=== PATIENT | male | born 1945 | race Caucasian/White ===

== ENCOUNTER → 2017-01-09 | Outpatient (CLI) | payer MEDICARE ==
[~2017-01-09] MED LIST: ACET-1757 PO; ACET325T14 PO; ACET650T34 PO; ACID1TAB3 PO; ALLO100T30 PO; AMLO10TA2 PO; AMLO5TAB4 PO; AMPI500V3; ASPI-496; ASPI-496 PO; ATOR10TA9 PO; ATOR20TA PO; ATOR20TA9 PO; B12 PO; CARV-39 PO; CARV25TA12 PO; CEFD300C37 PO; CHOL100015 PO; CHOL500014 PO; CLOP75TA22 PO; CYAN100063 PO; DAPT500V6 IV; DARB100D SQ; DOCU-30 PO; DOCU60SY11; ERGO500017 PO; FAMO20TA7 PO; FEBU80TA2; FEBU80TA2 PO; FERR325T20 PO; FERR325T35 PO; FLUO20CA19 PO; FLUO20CA8 PO; FLUO20TA25 PO; FLUO40CA2 PO; FLUO40CA9; FLUO40CA9 PO; FOLI-17 PO; FOLI0.8T2 PO; FOLIC ACID PO; FURO-92 PO; FURO-93 PO; FURO40TA6 PO; FURO80TA77 PO; GABA100C8 PO; GABA300C PO; HEPA500024 SC; HYDR-3342 PO; INSU100V10 SQ-INSULIN; INSU100V14 SC; INSU100V3 SQ-INSULIN; INSU100V5 SQ-INSULIN; ISOS20TA3 PO; ISOS30TA19 PO; ISOS40TA11 PO; ISOS5TAB2 PO; ISOS60TA PO; LACT1CAP24 PO; LACT1CAP6 PO; LEVO500T33; LISI-170 PO; LOPE1TAB4 PO; LOPE2CAP PO; LOSA100T6 PO; LUBI24CA5 PO; METH500T7 PO; METH500T97 PO; METO2.5T PO; METR500T; METR500T PO; NIAC1000 PO; NITR0.4T SL; NITR0.4T8 SL; OMEG1CAP6 PO; OMEP-110 PO; OMEP20CA9 PO; ONDA4TAB10 PO; OXYC10TA32 PO; OXYC10TA6 PO; OXYC5TAB3 PO; OXYM30MI NAS; PANT40TA3 PO; PANT40TA5 PO; PIPE4.5V6 IV; POLY17PO5 PO; POLY454P3 PO; PRAS10TA4 PO; RANO500T2 PO; SENN8.6T98 PO; SEVE800T8 PO; SIMV10TA3 PO; SODI650T PO; SUCR1ORA2 PO; TAMS-11 PO; TAMS0.4C2 PO; TRAM-28 PO; TRAM50TA2 PO; VANC125C2 PO; ZOLP5TAB6 PO
[2017-01-09 10:09] LABS: ASPARTATE AMINO TRANSFERASE 16 U/L (15-37); BLOOD UREA NITROGEN 43 mg/dL (7-18)
[2017-01-09 10:45] LABS: DIFF TOTAL CELLS COUNTED 100 CELL DIFF
[2017-01-09 10:48] LABS: VERIFY COUNTS? YES
[2017-01-09 10:49] LABS: ANISOCYTOSIS 2+; HYPOCHROMIA 1+; POLYCHROMASIA 1+
[2017-01-09 10:50] LABS: OVALOCYTES 1+; TARGET CELLS 1+
== END | disposition home or self-care (01) ==
LOC: LAB 09:28
PROVIDERS: ATTEND Internal Medicine Hematology & Oncology
DX: D47.2 Monoclonal gammopathy (principal)
CPT/HCPCS: 36415; 80053; 82232; 82784; 83883; 84155; 84156; 84165; 84166; 85025; 86334; 86335

== ENCOUNTER 2017-01-24 15:09 | Inpatient (IN) | payer MEDICARE ==
[~2017-01-24] VITALS: Ht 177.8 cm; Wt 125.2 kg
[2017-01-24] MEDS ORDERED: ASPIRIN 81 MG TABLET CHEW PO ONE (15:30)
[2017-01-24] MEDS ORDERED: SODIUM CHLORIDE FLUSH 10ML SYR IVF ONE (15:30)
[2017-01-24] MEDS ORDERED: ASPIRIN 81 MG TABLET CHEW ONE (15:43)
[2017-01-24 15:45] LABS: BLOOD UREA NITROGEN 51 mg/dL (7-18)
[2017-01-24 15:51] LABS: ASPARTATE AMINO TRANSFERASE 29 U/L (15-37)
[2017-01-24 15:54] LABS: IS PT STATUS REG ER OR PRE ER? YES
[2017-01-24] MEDS ORDERED: SODIUM CHLORIDE 0.9%, 250ML IVBOLUS ONE ×2 (16:00→17:00)
[2017-01-24 16:08] LABS: DIFF TOTAL CELLS COUNTED 100 CELL DIFF
[2017-01-24 16:14] LABS: ANISOCYTOSIS 2+
[2017-01-24 16:15] LABS: MICROCYTOSIS 1+; OVALOCYTES 1+; POIKILOCYTOSIS 1+; POLYCHROMASIA 1+
[2017-01-24 16:16] LABS: VERIFY COUNTS? YES
[2017-01-24] MEDS ORDERED: ALBUTEROL/IPRATROPIUM 2.5MG/0.5MG, 3 ML ONE (16:40)
[2017-01-24] MEDS ORDERED: ALBUTEROL/IPRATROPIUM 2.5MG/0.5MG, 3 ML NPPB ONE (17:00)
[2017-01-24] MEDS ORDERED: CALCIUM GLUCONATE 0.46MEQ/1ML IVPush ONE (18:30)
[2017-01-24] MEDS ORDERED: GLUCAGON 1 MG IVPush ONE ×2 (18:30→20:00)
[2017-01-24] MEDS ORDERED: ONDANSETRON 2MG/ML, 2ML IVPush ONE (18:30)
[2017-01-24] MEDS ORDERED: CALCIUM GLUCONATE 4.6 MEQ in SODIUM CHLORIDE 0.9% 50 ML IV ONE (19:00)
[2017-01-24] MEDS ORDERED: ONDANSETRON 2MG/ML, 2ML ONE (19:13)
[2017-01-24] MEDS ORDERED: GLUCAGON 1 MG ONE (19:53)
[2017-01-24] MEDS ORDERED: NITROGLYCERIN 0.4 MG BOTTLE (25 TABS) SL PRN (20:00)
[2017-01-24] MEDS ORDERED: morphine SULFATE 10 MG/ML, 1ML IVPush PRN (20:30)
[2017-01-24] MEDS ORDERED: HYDROcodone/APAP 5/325 TABLET PO PRN (20:30)
[2017-01-24] MEDS ORDERED: ALBUTEROL SULFATE 2.5 MG/3 ML ONE (22:51)
[2017-01-24] MEDS: GABAPENTIN 300 MG CAPSULE PO SCH (23:22)
[2017-01-24] MEDS: HEPARIN 5,000 UNITS/ML, 1ML SQ SCH (23:22)
[2017-01-24] MEDS: OMEPRAZOLE 20 MG CAPSULE.DR PO SCH (23:22)
[2017-01-24] MEDS: INSULIN ASPART 100 UNITS/ML, PEN SQ-INSULIN SCH (23:22)
[2017-01-24] MEDS: ATORVASTATIN 20 MG TABLET PO SCH (23:22)
[2017-01-24] MEDS: SEVELAMER 800MG TABLET PO SCH (23:29)
[2017-01-25] MEDS ORDERED: ALBUTEROL/IPRATROPIUM 2.5MG/0.5MG, 3 ML NPPB PRN (01:00)
[2017-01-25 03:13] VITALS: BP 98/57
[2017-01-25 05:00] VITALS: BP 103/64
[2017-01-25] MEDS: HEPARIN 5,000 UNITS/ML, 1ML SQ SCH ×3 (06:09→21:30)
[2017-01-25 06:34] LABS: BLOOD UREA NITROGEN 58 mg/dL (7-18)
[2017-01-25] MEDS: INSULIN ASPART 100 UNITS/ML, PEN SQ-INSULIN SCH ×4 (07:00→21:30)
[2017-01-25] MEDS: ONDANSETRON 2MG/ML, 2ML IVPush PRN ×2 (08:52→20:24)
[2017-01-25] MEDS: FLUOXETINE 20 MG CAPSULE PO SCH (08:53)
[2017-01-25] MEDS: CLOPIDOGREL 75 MG TABLET PO SCH (08:53)
[2017-01-25] MEDS: OMEPRAZOLE 20 MG CAPSULE.DR PO SCH ×2 (08:53→21:29)
[2017-01-25] MEDS: ASPIRIN 81 MG TABLET EC PO SCH (08:53)
[2017-01-25] MEDS: SEVELAMER 800MG TABLET PO SCH (08:53)
[2017-01-25] MEDS: CARVEDILOL 3.125 MG TABLET PO SCH ×2 (09:00→21:29)
[2017-01-25 09:02] VITALS: BP 104/58
[2017-01-25] MEDS: CALCIUM ACETATE 667 MG CAPSULE PO SCH ×2 (12:37→21:29)
[2017-01-25 15:10] VITALS: BP 115/57
[2017-01-25] MEDS: CEFTRIAXONE 1,000 MG in SODIUM CHLORIDE 0.9% 50 ML IV SCH (20:24)
[2017-01-25 20:32] VITALS: BP 139/69
[2017-01-25] MEDS: ATORVASTATIN 20 MG TABLET PO SCH (21:29)
[2017-01-25] MEDS: GABAPENTIN 300 MG CAPSULE PO SCH (21:30)
[2017-01-25] MEDS ORDERED: ACETAMINOPHEN 325 MG TABLET PO PRN (22:30)
[2017-01-26 02:15] VITALS: BP 102/61
[2017-01-26] MEDS: CARVEDILOL 3.125 MG TABLET PO SCH ×2 (06:00→20:27)
[2017-01-26 06:11] LABS: BLOOD UREA NITROGEN 44 mg/dL (7-18)
[2017-01-26] MEDS: HEPARIN 5,000 UNITS/ML, 1ML SQ SCH ×3 (06:14→20:26)
[2017-01-26] MEDS: INSULIN ASPART 100 UNITS/ML, PEN SQ-INSULIN SCH ×4 (07:00→21:00)
[2017-01-26 08:23] VITALS: BP 115/57
[2017-01-26] MEDS: CLOPIDOGREL 75 MG TABLET PO SCH (09:00)
[2017-01-26] MEDS: FLUOXETINE 20 MG CAPSULE PO SCH (09:00)
[2017-01-26] MEDS: CALCIUM ACETATE 667 MG CAPSULE PO SCH ×3 (09:00→17:49)
[2017-01-26] MEDS: CYANOCOBALAMIN 1,000 MCG TABLET PO SCH (09:00)
[2017-01-26] MEDS: OMEPRAZOLE 20 MG CAPSULE.DR PO SCH ×2 (09:00→20:27)
[2017-01-26] MEDS: ASPIRIN 81 MG TABLET EC PO SCH (09:06)
[2017-01-26 14:31] VITALS: BP 115/62
[2017-01-26 19:13] VITALS: BP 143/75
[2017-01-26] MEDS: CEFTRIAXONE 1,000 MG in SODIUM CHLORIDE 0.9% 50 ML IV SCH (20:26)
[2017-01-26] MEDS: GABAPENTIN 300 MG CAPSULE PO SCH (20:26)
[2017-01-26] MEDS: ATORVASTATIN 20 MG TABLET PO SCH (20:27)
[2017-01-26] MEDS: ALBUTEROL/IPRATROPIUM 2.5MG/0.5MG, 3 ML NPPB SCH (21:03)
[2017-01-26] MEDS: ARANESP 100 MCG/ML **ESRD SQ SCH (21:50)
[2017-01-27 00:56] VITALS: BP 140/72
[2017-01-27] MEDS: HEPARIN 5,000 UNITS/ML, 1ML SQ SCH ×3 (06:16→23:01)
[2017-01-27] MEDS: CARVEDILOL 3.125 MG TABLET PO SCH ×2 (06:16→17:20)
[2017-01-27] MEDS: INSULIN ASPART 100 UNITS/ML, PEN SQ-INSULIN SCH ×4 (07:00→20:03)
[2017-01-27] MEDS: ALBUTEROL/IPRATROPIUM 2.5MG/0.5MG, 3 ML NPPB SCH ×2 (07:01→21:20)
[2017-01-27 08:22] VITALS: BP 130/66
[2017-01-27] MEDS: OMEPRAZOLE 20 MG CAPSULE.DR PO SCH ×2 (09:15→20:04)
[2017-01-27] MEDS: CLOPIDOGREL 75 MG TABLET PO SCH (09:15)
[2017-01-27] MEDS: FLUOXETINE 20 MG CAPSULE PO SCH (09:15)
[2017-01-27] MEDS: CALCIUM ACETATE 667 MG CAPSULE PO SCH ×3 (09:15→17:20)
[2017-01-27] MEDS: ASPIRIN 81 MG TABLET EC PO SCH (09:16)
[2017-01-27] MEDS: FERROUS SULFATE 325 MG TABLET PO SCH ×3 (09:27→17:20)
[2017-01-27 10:27] LABS: HEP B SURF. AB < 3.1 mIU/mL (0.0-10.0)
[2017-01-27 15:25] VITALS: BP 118/66
[2017-01-27 19:53] VITALS: BP 108/62
[2017-01-27] MEDS: GABAPENTIN 300 MG CAPSULE PO SCH (20:04)
[2017-01-27] MEDS: ATORVASTATIN 20 MG TABLET PO SCH (20:04)
[2017-01-27] MEDS: CEFTRIAXONE 1,000 MG in SODIUM CHLORIDE 0.9% 50 ML IV SCH (20:04)
[2017-01-28 02:27] VITALS: BP 108/63
[2017-01-28] MEDS: INSULIN ASPART 100 UNITS/ML, PEN SQ-INSULIN SCH ×4 (07:00→20:35)
[2017-01-28 07:40] VITALS: BP 124/67
[2017-01-28] MEDS: ALBUTEROL/IPRATROPIUM 2.5MG/0.5MG, 3 ML NPPB SCH ×2 (07:50→19:25)
[2017-01-28] MEDS: HEPARIN 5,000 UNITS/ML, 1ML SQ SCH ×2 (09:09→17:28)
[2017-01-28] MEDS: CARVEDILOL 3.125 MG TABLET PO SCH ×2 (09:12→17:28)
[2017-01-28] MEDS: ASPIRIN 81 MG TABLET EC PO SCH (09:14)
[2017-01-28] MEDS: CALCIUM ACETATE 667 MG CAPSULE PO SCH ×3 (09:14→17:28)
[2017-01-28] MEDS: CLOPIDOGREL 75 MG TABLET PO SCH (09:14)
[2017-01-28] MEDS: FERROUS SULFATE 325 MG TABLET PO SCH ×3 (09:15→17:28)
[2017-01-28] MEDS: FLUOXETINE 20 MG CAPSULE PO SCH (09:15)
[2017-01-28] MEDS: OMEPRAZOLE 20 MG CAPSULE.DR PO SCH ×2 (09:16→20:35)
[2017-01-28 14:00] VITALS: BP 129/72
[2017-01-28 17:25] VITALS: BP 121/64
[2017-01-28] MEDS ORDERED: VANCOMYCIN PER PHARMACY MC PRN (17:30)
[2017-01-28] MEDS ORDERED: PHARMACY INSTRUCTION MC SCH (17:30)
[2017-01-28] MEDS ORDERED: VANCOMYCIN PMX 1GM/200ML 200 ML IV ONE (17:30)
[2017-01-28] MEDS ORDERED: VANCOMYCIN 2,000 MG in SODIUM CHLORIDE 0.9% 500 ML IV ONE (18:00)
[2017-01-28] MEDS ORDERED: PHARMACOKINETIC CONSULTATION MC ONE (18:00)
[2017-01-28] MEDS ORDERED: PIPERACILLIN/TAZO 0.75 GM in SODIUM CHLORIDE 0.9% 50 ML IV PRN (18:00)
[2017-01-28] MEDS ORDERED: PHARMACOKINETIC MONITORING MC PRN (18:00)
[2017-01-28] MEDS: PIPERACILLIN/TAZO 2.25 GM in SODIUM CHLORIDE 0.9% 50 ML IV SCH (18:06)
[2017-01-28 19:40] VITALS: BP 126/66
[2017-01-28] MEDS: ATORVASTATIN 20 MG TABLET PO SCH (20:35)
[2017-01-28] MEDS: GABAPENTIN 300 MG CAPSULE PO SCH (20:35)
[2017-01-29] MEDS: PIPERACILLIN/TAZO 2.25 GM in SODIUM CHLORIDE 0.9% 50 ML IV SCH ×3 (01:24→18:05)
[2017-01-29] MEDS: HEPARIN 5,000 UNITS/ML, 1ML SQ SCH ×3 (01:24→18:06)
[2017-01-29] MEDS ORDERED: IRON SUCROSE COMPLEX 100MG/5ML IV SCH (01:30)
[2017-01-29 01:48] VITALS: BP 113/64
[2017-01-29] MEDS: IRON SUCROSE COMPLEX 100MG/5ML IV SCH (03:38)
[2017-01-29] MEDS: CARVEDILOL 3.125 MG TABLET PO SCH ×2 (05:22→18:06)
[2017-01-29 05:37] LABS: BLOOD UREA NITROGEN 90 mg/dL (7-18)
[2017-01-29] MEDS: INSULIN ASPART 100 UNITS/ML, PEN SQ-INSULIN SCH ×4 (07:00→20:59)
[2017-01-29] MEDS: ALBUTEROL/IPRATROPIUM 2.5MG/0.5MG, 3 ML NPPB SCH ×2 (07:10→19:21)
[2017-01-29 07:46] VITALS: BP 114/64
[2017-01-29] MEDS: FLUOXETINE 20 MG CAPSULE PO SCH (09:17)
[2017-01-29] MEDS: CLOPIDOGREL 75 MG TABLET PO SCH (09:17)
[2017-01-29] MEDS: OMEPRAZOLE 20 MG CAPSULE.DR PO SCH ×2 (09:17→20:59)
[2017-01-29] MEDS: CALCIUM ACETATE 667 MG CAPSULE PO SCH ×3 (09:17→18:04)
[2017-01-29] MEDS: ASPIRIN 81 MG TABLET EC PO SCH (09:17)
[2017-01-29 14:00] VITALS: BP 126/56
[2017-01-29 14:16] LABS: BLOOD UREA NITROGEN 76 mg/dL (7-18)
[2017-01-29] MEDS: metroNIDAZOLE 500 MG TABLET PO SCH (16:00)
[2017-01-29 18:04] VITALS: BP 126/70
[2017-01-29] MEDS: ATORVASTATIN 20 MG TABLET PO SCH (20:59)
[2017-01-29] MEDS: GABAPENTIN 300 MG CAPSULE PO SCH (20:59)
[2017-01-29 21:00] VITALS: BP 119/64
[2017-01-30] MEDS: IRON SUCROSE COMPLEX 100MG/5ML IV SCH (01:10)
[2017-01-30] MEDS: metroNIDAZOLE 500 MG TABLET PO SCH ×3 (01:10→16:17)
[2017-01-30] MEDS: PIPERACILLIN/TAZO 2.25 GM in SODIUM CHLORIDE 0.9% 50 ML IV SCH ×3 (01:10→18:33)
[2017-01-30] MEDS: HEPARIN 5,000 UNITS/ML, 1ML SQ SCH ×3 (01:10→16:17)
[2017-01-30 01:34] VITALS: BP 104/62
[2017-01-30] MEDS: CARVEDILOL 3.125 MG TABLET PO SCH ×2 (05:33→16:17)
[2017-01-30 05:58] LABS: ASPARTATE AMINO TRANSFERASE 39 U/L (15-37); BLOOD UREA NITROGEN 55 mg/dL (7-18)
[2017-01-30] MEDS: INSULIN ASPART 100 UNITS/ML, PEN SQ-INSULIN SCH ×4 (07:00→21:00)
[2017-01-30] MEDS: CLOPIDOGREL 75 MG TABLET PO SCH ×2 (07:30→11:26)
[2017-01-30] MEDS: ASPIRIN 81 MG TABLET EC PO SCH ×2 (07:30→11:26)
[2017-01-30 07:47] VITALS: BP 118/63
[2017-01-30] MEDS: ALBUTEROL/IPRATROPIUM 2.5MG/0.5MG, 3 ML NPPB SCH ×2 (07:50→21:25)
[2017-01-30] MEDS: OMEPRAZOLE 20 MG CAPSULE.DR PO SCH ×2 (07:52→21:23)
[2017-01-30] MEDS: FLUOXETINE 20 MG CAPSULE PO SCH (07:53)
[2017-01-30] MEDS: CALCIUM ACETATE 667 MG CAPSULE PO SCH ×3 (07:53→16:17)
[2017-01-30 15:00] VITALS: BP 121/67
[2017-01-30 21:11] VITALS: BP 118/63
[2017-01-30] MEDS: GABAPENTIN 300 MG CAPSULE PO SCH (21:23)
[2017-01-30] MEDS: ATORVASTATIN 20 MG TABLET PO SCH (21:23)
[2017-01-31] VITALS (13 sets, daily range): BP systolic 116–143; BP diastolic 59–74
[2017-01-31] MEDS: PIPERACILLIN/TAZO 2.25 GM in SODIUM CHLORIDE 0.9% 100 ML IV SCH ×3 (00:40→17:30)
[2017-01-31] MEDS: metroNIDAZOLE 500 MG TABLET PO SCH ×2 (00:40→09:00)
[2017-01-31] MEDS: IRON SUCROSE COMPLEX 100MG/5ML IV SCH (00:41)
[2017-01-31] MEDS: HEPARIN 5,000 UNITS/ML, 1ML SQ SCH (01:00)
[2017-01-31 02:30] LABS: OCCBLD OBC PASS
[2017-01-31] MEDS ORDERED: PANTOPRAZOLE 40 MG IV IVPush ONE (04:00)
[2017-01-31 06:09] LABS: DIFF TOTAL CELLS COUNTED 100 CELL DIFF
[2017-01-31 06:11] LABS: ANISOCYTOSIS 1+; VERIFY COUNTS? YES
[2017-01-31 06:12] LABS: HYPOCHROMIA 1+; OVALOCYTES 1+; POIKILOCYTOSIS 1+
[2017-01-31 06:13] LABS: BLOOD UREA NITROGEN 69 mg/dL (7-18)
[2017-01-31 06:13] LABS: LARGE PLATELETS 1+; MICROCYTOSIS 1+
[2017-01-31] MEDS: ALBUTEROL/IPRATROPIUM 2.5MG/0.5MG, 3 ML NPPB SCH ×2 (06:50→21:21)
[2017-01-31] MEDS: INSULIN ASPART 100 UNITS/ML, PEN SQ-INSULIN SCH ×4 (07:00→21:00)
[2017-01-31] MEDS ORDERED: SODIUM CHLORIDE 0.9% 500 ML IV SCH (07:17)
[2017-01-31] MEDS ORDERED: DIPHENHYDRAMINE 50 MG/ML, 1ML IVPush ONE (07:30)
[2017-01-31] MEDS ORDERED: VANCOMYCIN 50 MG/ML ORAL SUSP PO SCH (07:30)
[2017-01-31] MEDS ORDERED: ACETAMINOPHEN 325 MG TABLET PO ONE (07:30)
[2017-01-31] MEDS: CARVEDILOL 3.125 MG TABLET PO SCH ×2 (09:00→17:47)
[2017-01-31] MEDS: ASPIRIN 81 MG TABLET EC PO SCH (09:00)
[2017-01-31] MEDS: CALCIUM ACETATE 667 MG CAPSULE PO SCH ×3 (09:00→17:44)
[2017-01-31] MEDS: CLOPIDOGREL 75 MG TABLET PO SCH (09:01)
[2017-01-31] MEDS: OMEPRAZOLE 20 MG CAPSULE.DR PO SCH ×2 (09:01→21:51)
[2017-01-31] MEDS: FLUOXETINE 20 MG CAPSULE PO SCH (09:01)
[2017-01-31 10:12] LABS: OCCBLD OBC PASS
[2017-01-31] MEDS: VANCOMYCIN 50 MG/ML ORAL SUSP PO SCH ×2 (14:00→21:51)
[2017-01-31 17:16] LABS: IS PT STATUS REG ER OR PRE ER? NO
[2017-01-31] MEDS ORDERED: DIPHENHYDRAMINE 50 MG/ML, 1ML ONE (17:39)
[2017-01-31] MEDS ORDERED: VANCOMYCIN 2,000 MG in SODIUM CHLORIDE 0.9% 500 ML IV ONE (18:00)
[2017-01-31] MEDS ORDERED: ALBUMIN HUMAN 25% 50 ML IV PRN (18:00)
[2017-01-31] MEDS ORDERED: ALBUMIN HUMAN 25% 100 ML IV PRN (18:00)
[2017-01-31] MEDS: ATORVASTATIN 20 MG TABLET PO SCH (21:51)
[2017-01-31] MEDS: GABAPENTIN 300 MG CAPSULE PO SCH (21:51)
[2017-02-01 01:30] VITALS: BP 123/70
[2017-02-01] MEDS: PIPERACILLIN/TAZO/PMX 2.25GM 50 ML IV SCH ×3 (01:32→17:27)
[2017-02-01] MEDS: IRON SUCROSE COMPLEX 100MG/5ML IV SCH (01:32)
[2017-02-01] MEDS: CARVEDILOL 3.125 MG TABLET PO SCH ×2 (05:04→17:27)
[2017-02-01] MEDS: VANCOMYCIN 50 MG/ML ORAL SUSP PO SCH ×4 (05:05→22:47)
[2017-02-01 06:11] LABS: BLOOD UREA NITROGEN 36 mg/dL (7-18)
[2017-02-01 06:47] LABS: DIFF TOTAL CELLS COUNTED 100 CELL DIFF
[2017-02-01 06:49] LABS: VERIFY COUNTS? YES
[2017-02-01 06:50] LABS: HYPOCHROMIA 1+; POLYCHROMASIA 1+
[2017-02-01 06:52] LABS: OVALOCYTES 1+
[2017-02-01 06:57] LABS: ANISOCYTOSIS 2+; LARGE PLATELETS 1+
[2017-02-01] MEDS: INSULIN ASPART 100 UNITS/ML, PEN SQ-INSULIN SCH ×4 (07:00→21:00)
[2017-02-01 07:38] VITALS: BP 134/69
[2017-02-01] MEDS: FLUOXETINE 20 MG CAPSULE PO SCH (08:38)
[2017-02-01] MEDS: CLOPIDOGREL 75 MG TABLET PO SCH (08:38)
[2017-02-01] MEDS: OMEPRAZOLE 20 MG CAPSULE.DR PO SCH ×2 (08:38→22:47)
[2017-02-01] MEDS: CALCIUM ACETATE 667 MG CAPSULE PO SCH ×3 (08:38→17:27)
[2017-02-01] MEDS: PANTOPRAZOLE 40 MG IV IVPush SCH (08:44)
[2017-02-01] MEDS: ALBUTEROL/IPRATROPIUM 2.5MG/0.5MG, 3 ML NPPB SCH ×2 (09:45→21:00)
[2017-02-01] MEDS: PANTOPRAZOLE MC SCH ×2 (12:00→20:00)
[2017-02-01] MEDS: OMEPRAZOLE MC SCH ×2 (12:00→20:00)
[2017-02-01 14:06] VITALS: BP 142/67
[2017-02-01] MEDS ORDERED: GOLYTELY 4,000ML ORAL.SOL PO ONE (18:00)
[2017-02-01 19:08] VITALS: BP 138/75
[2017-02-01] MEDS: ATORVASTATIN 20 MG TABLET PO SCH (22:47)
[2017-02-01] MEDS: GABAPENTIN 300 MG CAPSULE PO SCH (22:47)
[2017-02-02 01:16] VITALS: BP 126/68
[2017-02-02] MEDS: PIPERACILLIN/TAZO/PMX 2.25GM 50 ML IV SCH ×3 (01:55→22:11)
[2017-02-02] MEDS: IRON SUCROSE COMPLEX 100MG/5ML IV SCH (01:55)
[2017-02-02] MEDS: PANTOPRAZOLE MC SCH (04:00)
[2017-02-02] MEDS: OMEPRAZOLE MC SCH (04:00)
[2017-02-02 05:40] VITALS: BP 153/70
[2017-02-02] MEDS: VANCOMYCIN 50 MG/ML ORAL SUSP PO SCH ×4 (05:42→22:11)
[2017-02-02] MEDS: CARVEDILOL 3.125 MG TABLET PO SCH ×2 (05:43→22:15)
[2017-02-02 05:46] LABS: BLOOD UREA NITROGEN 41 mg/dL (7-18)
[2017-02-02 06:20] LABS: DIFF TOTAL CELLS COUNTED 100 CELL DIFF
[2017-02-02 06:22] LABS: ANISOCYTOSIS 2+; POLYCHROMASIA 1+; VERIFY COUNTS? YES
[2017-02-02 06:23] LABS: LARGE PLATELETS 1+; OVALOCYTES 1+
[2017-02-02 06:25] LABS: HOWELL-JOLLY BODIES 1+; MICROCYTOSIS 1+
[2017-02-02 06:27] LABS: SPHEROCYTES 1+
[2017-02-02 06:29] LABS: ECHINOCYTES 1+
[2017-02-02] MEDS: INSULIN ASPART 100 UNITS/ML, PEN SQ-INSULIN SCH ×2 (07:00→11:00)
[2017-02-02 07:37] VITALS: BP 157/92
[2017-02-02] MEDS ORDERED: MIDAZOLAM 1 MG/ML, 2ML ONE (08:10)
[2017-02-02] MEDS ORDERED: FENTANYL PF 100 MCG/2ML ONE (08:10)
[2017-02-02] MEDS: PANTOPRAZOLE 40 MG IV IVPush SCH (08:15)
[2017-02-02] MEDS: ALBUTEROL/IPRATROPIUM 2.5MG/0.5MG, 3 ML NPPB SCH ×2 (09:00→20:50)
[2017-02-02] MEDS: OMEPRAZOLE 20 MG CAPSULE.DR PO SCH (09:00)
[2017-02-02] MEDS: FLUOXETINE 20 MG CAPSULE PO SCH (10:32)
[2017-02-02] MEDS: CYANOCOBALAMIN 1,000 MCG TABLET PO SCH (10:33)
[2017-02-02] MEDS: CALCIUM ACETATE 667 MG CAPSULE PO SCH ×3 (10:33→17:00)
[2017-02-02] MEDS: CLOPIDOGREL 75 MG TABLET PO SCH (10:33)
[2017-02-02 13:27] VITALS: BP 125/68
[2017-02-02 19:26] VITALS: BP 132/58
[2017-02-02] MEDS: ATORVASTATIN 20 MG TABLET PO SCH (22:11)
[2017-02-02] MEDS: GABAPENTIN 300 MG CAPSULE PO SCH (22:11)
[2017-02-02 22:13] VITALS: BP 145/73
[2017-02-03] MEDS: ARANESP 100 MCG/ML **ESRD SQ SCH
[2017-02-03 03:01] VITALS: BP 146/68
[2017-02-03 06:15] LABS: BLOOD UREA NITROGEN 21 mg/dL (7-18)
[2017-02-03 06:21] LABS: DIFF TOTAL CELLS COUNTED 100 CELL DIFF
[2017-02-03 06:25] LABS: VERIFY COUNTS? YES
[2017-02-03 06:26] LABS: ANISOCYTOSIS 2+; HYPOCHROMIA 1+; MICROCYTOSIS 1+
[2017-02-03] MEDS: PIPERACILLIN/TAZO/PMX 2.25GM 50 ML IV SCH ×2 (06:42→17:03)
[2017-02-03] MEDS: VANCOMYCIN 50 MG/ML ORAL SUSP PO SCH ×3 (06:42→17:03)
[2017-02-03 06:44] VITALS: BP 132/62
[2017-02-03] MEDS: CARVEDILOL 3.125 MG TABLET PO SCH ×2 (06:46→17:03)
[2017-02-03] MEDS ORDERED: VANCOMYCIN 2,000 MG in SODIUM CHLORIDE 0.9% 500 ML IV ONE (08:00)
[2017-02-03] MEDS: FLUOXETINE 20 MG CAPSULE PO SCH (09:13)
[2017-02-03] MEDS: PANTOPRAZOLE 40 MG IV IVPush SCH (09:13)
[2017-02-03] MEDS: CLOPIDOGREL 75 MG TABLET PO SCH (09:13)
[2017-02-03] MEDS: CALCIUM ACETATE 667 MG CAPSULE PO SCH ×3 (09:13→17:03)
[2017-02-03] MEDS: ALBUTEROL/IPRATROPIUM 2.5MG/0.5MG, 3 ML NPPB SCH ×2 (10:45→15:50)
[2017-02-03 14:06] VITALS: BP 129/70
[2017-02-03 19:26] VITALS: BP 153/62
[2017-02-03] MEDS: GABAPENTIN 300 MG CAPSULE PO SCH (21:03)
[2017-02-03] MEDS: ATORVASTATIN 20 MG TABLET PO SCH (21:03)
[2017-02-04] VITALS (14 sets, daily range): BP systolic 135–182; BP diastolic 55–80
[2017-02-04] MEDS: PIPERACILLIN/TAZO/PMX 2.25GM 50 ML IV SCH ×2 (01:16→09:19)
[2017-02-04] MEDS ORDERED: PHENYLEPHRINE NASAL 0.5%, 15ML SPRAY NAS ONE (05:00)
[2017-02-04 05:50] LABS: BLOOD UREA NITROGEN 28 mg/dL (7-18)
[2017-02-04] MEDS: VANCOMYCIN 50 MG/ML ORAL SUSP PO SCH ×3 (06:02→12:21)
[2017-02-04] MEDS: CARVEDILOL 3.125 MG TABLET PO SCH (06:02)
[2017-02-04 06:31] LABS: DIFF TOTAL CELLS COUNTED 100 CELL DIFF
[2017-02-04 06:39] LABS: ANISOCYTOSIS 2+; HYPOCHROMIA 1+; MICROCYTOSIS 1+; POLYCHROMASIA 1+; VERIFY COUNTS? YES
[2017-02-04 06:40] LABS: OVALOCYTES 1+
[2017-02-04 06:41] LABS: LARGE PLATELETS 1+
[2017-02-04] MEDS: FLUOXETINE 20 MG CAPSULE PO SCH (09:18)
[2017-02-04] MEDS: CALCIUM ACETATE 667 MG CAPSULE PO SCH ×2 (09:18→12:20)
[2017-02-04] MEDS: CLOPIDOGREL 75 MG TABLET PO SCH (09:18)
[2017-02-04] MEDS: PANTOPRAZOLE 40 MG IV IVPush SCH (09:18)
[2017-02-04] MEDS ORDERED: CALC667C PO (09:59)
[2017-02-04] MEDS ORDERED: IPRA3AMP NPPB (09:59)
[2017-02-04] MEDS ORDERED: CARV3.1212 PO (09:59)
[2017-02-04] MEDS ORDERED: DARB100V SQ (09:59)
[2017-02-04] MEDS ORDERED: VANC1VIA3 PO (09:59)
[2017-02-04] MEDS ORDERED: HYDR-3240 PO (09:59)
[2017-02-04] MEDS ORDERED: VANC1.5P11 IV (09:59)
[2017-02-04] MEDS ORDERED: PIPE2.253 IV (09:59)
[2017-02-04] MEDS ORDERED: FURO80TA77 PO (10:46)
[2017-02-04] MEDS ORDERED: ONDA4TAB13 IVPush (15:26)
[2017-02-04] MEDS ORDERED: MORP1SYR2 IVPush (15:28)
[2017-02-04] MEDS ORDERED: ACET650S21 PO (15:29)
[2017-02-04] MEDS ORDERED: ONDANSETRON 2MG/ML, 2ML IVPush PRN (16:00)
[2017-02-04] MEDS ORDERED: morphine SULFATE 10 MG/ML, 1ML IVPush PRN (16:00)
[2017-02-04] MEDS ORDERED: HYDROcodone/APAP 5/325 TABLET PO PRN (16:00)
[2017-02-05] MEDS ORDERED: PANTOPROZOLE 40MG TABLET PO SCH (07:30)
== END 2017-02-04 17:20 | DRG 871 ==
LOC: ED 19:20 → EDIP 19:28 → ED 19:42 → 5SO 22:14
PROVIDERS: ADMIT Internal Medicine; ATTEND Internal Medicine
PROC: 0T9B70Z Drainage of Bladder with Drainage Device, Via Natural or Artificial Opening (ICD-10-PCS; 2017-01-24)
PROC: 5A1D60Z (ICD-10-PCS; principal; 2017-01-25)
PROC: 30233N1 Transfusion of Nonautologous Red Blood Cells into Peripheral Vein, Percutaneous Approach (ICD-10-PCS; 2017-01-31)
PROC: 0W3P8ZZ Control Bleeding in Gastrointestinal Tract, Via Natural or Artificial Opening Endoscopic (ICD-10-PCS; 2017-02-03)
DX: A41.02 Sepsis due to Methicillin resistant Staphylococcus aureus (principal); J96.01 Acute respiratory failure with hypoxia; N18.6 End stage renal disease; E43 Unspecified severe protein-calorie malnutrition; J15.212 Pneumonia due to Methicillin resistant Staphylococcus aureus; K31.811 Angiodysplasia of stomach and duodenum with bleeding; E87.1 Hypo-osmolality and hyponatremia; I13.2 Hypertensive heart and chronic kidney disease with heart failure and with stage 5 chronic kidney disease, or end stage renal disease; I50.42 Chronic combined systolic (congestive) and diastolic (congestive) heart failure; N39.0 Urinary tract infection, site not specified; A04.7 Enterocolitis due to Clostridium difficile; J98.11 Atelectasis; D50.9 Iron deficiency anemia, unspecified; D63.1 Anemia in chronic kidney disease; E11.21 Type 2 diabetes mellitus with diabetic nephropathy; E11.22 Type 2 diabetes mellitus with diabetic chronic kidney disease; E11.40 Type 2 diabetes mellitus with diabetic neuropathy, unspecified; E78.5 Hyperlipidemia, unspecified; E83.51 Hypocalcemia; I25.10 Atherosclerotic heart disease of native coronary artery without angina pectoris; I48.0 Paroxysmal atrial fibrillation; K21.0 Gastro-esophageal reflux disease with esophagitis; K31.9 Disease of stomach and duodenum, unspecified; K74.69 Other cirrhosis of liver; M81.0 Age-related osteoporosis without current pathological fracture; N40.0 Benign prostatic hyperplasia without lower urinary tract symptoms; M54.9 Dorsalgia, unspecified; G89.29 Other chronic pain; R04.0 Epistaxis; Z82.49 Family history of ischemic heart disease and other diseases of the circulatory system; I25.2 Old myocardial infarction; Z83.3 Family history of diabetes mellitus; Z80.9 Family history of malignant neoplasm, unspecified; Z86.14 Personal history of Methicillin resistant Staphylococcus aureus infection; Z86.19 Personal history of other infectious and parasitic diseases; Z86.73 Personal history of transient ischemic attack (TIA), and cerebral infarction without residual deficits; Z87.891 Personal history of nicotine dependence; Z90.81 Acquired absence of spleen; Z95.5 Presence of coronary angioplasty implant and graft; Z99.2 Dependence on renal dialysis; Z99.81 Dependence on supplemental oxygen; Z90.49 Acquired absence of other specified parts of digestive tract; Z90.89 Acquired absence of other organs; Z68.39 Body mass index [BMI] 39.0-39.9, adult
CPT/HCPCS: 36415; 71010; 80048; 80053; 80069; 80202; 81001; 82272; 82306; 82330; 82565; 82728; 82962; 83036; 83540; 83550; 83690; 83880; 83970; 84100; 84484; 84520; 84550; 85014; 85018; 85025; 85610; 86705; 86706; 86850; 86900; 86923; 87040; 87070; 87077; 87086; 87147; 87186; 87205; 87324; 87340; 93005; 94640; 96365; J0610; J0696; J0882; J1644; J1756; J1815; J2250; J2405; J2543; J3010; J3370; J7620; P9047; C9113; J1200; J1610; J7040; J7050; P9016

== ENCOUNTER 2017-02-23 12:03 | Inpatient (IN) | payer MEDICARE ==
[~2017-02-23] VITALS: Ht 177.8 cm; Wt 121.8 kg
[~2017-02-23 12:03] MED LIST changes: +ACET-1770 PO; +ACET650S21 PO; -ACET650T34 PO; +CALC667C PO; +CARV3.1212 PO; +DARB100V SQ; +GABA-826 PO; -GABA100C8 PO; +HYDR-3240 PO; +IPRA3AMP NPPB; +MORP1SYR2 IVPush; +ONDA4TAB13 IVPush; +PIPE2.253 IV; +VANC1.5P11 IV; +VANC1VIA3 PO
[2017-02-23] MEDS ORDERED: ONDANSETRON 2MG/ML, 2ML IVPush ONE (12:30)
[2017-02-23] MEDS ORDERED: SODIUM CHLORIDE FLUSH 10ML SYR IVF ONE (12:30)
[2017-02-23] MEDS ORDERED: METF500T4 PO (12:35)
[2017-02-23] MEDS ORDERED: MORPHINE SULFATE 4 MG/ML, 1ML ONE (12:58)
[2017-02-23] MEDS ORDERED: ONDANSETRON 2MG/ML, 2ML ONE (12:59)
[2017-02-23] MEDS: MORPHINE SULFATE 4 MG/ML, 1ML IVPush PRN ×2 (13:01→14:25)
[2017-02-23 13:21] LABS: BLOOD UREA NITROGEN 11 mg/dL (7-18)
[2017-02-23 13:35] LABS: ANISOCYTOSIS 1+; HYPOCHROMIA 1+; OVALOCYTES 1+; POLYCHROMASIA 1+
[2017-02-23 13:37] LABS: HOWELL-JOLLY BODIES 1+
[2017-02-23 13:38] LABS: LARGE PLATELETS 1+
[2017-02-23] MEDS ORDERED: SODIUM CHLORIDE FLUSH 10ML SYR IVF PRN (17:00)
[2017-02-23] MEDS ORDERED: morphine SULFATE 10 MG/ML, 1ML IVPush PRN (19:00)
[2017-02-23] MEDS ORDERED: hydrALAzine 20 MG/ML, 1ML IVPush PRN (19:00)
[2017-02-23] MEDS ORDERED: POLYETHYLENE GLYCOL 17 GM PACKET PO PRN (19:00)
[2017-02-23] MEDS ORDERED: OXYcodone IR 5MG TABLET PO PRN (19:00)
[2017-02-23] MEDS ORDERED: ONDANSETRON 2MG/ML, 2ML IVPush PRN (19:00)
[2017-02-23] MEDS ORDERED: BISACODYL 10 MG SUPP PR PRN (19:00)
[2017-02-23] MEDS ORDERED: ACETAMINOPHEN 650 MG/20.3 ML UDC PO PRN (19:30)
[2017-02-23] MEDS ORDERED: NITROGLYCERIN 0.4 MG BOTTLE (25 TABS) SL PRN (19:30)
[2017-02-23] MEDS: SEVELAMER 800MG TABLET PO SCH (19:40)
[2017-02-23 20:00] VITALS: BP 106/63
[2017-02-23] MEDS: CEFTAROLINE 200 MG in SODIUM CHLORIDE 0.9% 100 ML IV SCH (20:03)
[2017-02-23] MEDS: CYANOCOBALAMIN 1,000 MCG TABLET PO SCH (20:03)
[2017-02-23] MEDS: OMEPRAZOLE 20 MG CAPSULE.DR PO SCH (20:03)
[2017-02-23] MEDS: ATORVASTATIN 20 MG TABLET PO SCH (20:03)
[2017-02-23] MEDS: HEPARIN 5,000 UNITS/ML, 1ML SQ SCH (20:03)
[2017-02-23] MEDS: ONDANSETRON ODT 4 MG PO SCH (20:04)
[2017-02-23] MEDS: DARBEPOETIN 100 MCG/ML SQ SCH (20:05)
[2017-02-23] MEDS: INSULIN ASPART 100 UNITS/ML, PEN SQ-INSULIN SCH (21:00)
[2017-02-23] MEDS: HYDROcodone/APAP 5/325 TABLET PO PRN (23:25)
[2017-02-24] MEDS: ONDANSETRON ODT 4 MG PO SCH ×4 (01:30→19:30)
[2017-02-24 02:32] VITALS: BP_SYST 85; BP_SYST 87; BP_DIAS 45; BP_DIAS 48
[2017-02-24] MEDS: HEPARIN 5,000 UNITS/ML, 1ML SQ SCH ×3 (03:10→20:26)
[2017-02-24] MEDS: ALBUTEROL/IPRATROPIUM 2.5MG/0.5MG, 3 ML NPPB SCH ×3 (03:50→19:01)
[2017-02-24 05:53] LABS: BLOOD UREA NITROGEN 19 mg/dL (7-18)
[2017-02-24 05:57] LABS: ASPARTATE AMINO TRANSFERASE 23 U/L (15-37)
[2017-02-24] MEDS ORDERED: CARVEDILOL 3.125 MG TABLET PO SCH (06:00)
[2017-02-24] MEDS: INSULIN ASPART 100 UNITS/ML, PEN SQ-INSULIN SCH ×4 (07:20→20:26)
[2017-02-24] MEDS: CEFTAROLINE 200 MG in SODIUM CHLORIDE 0.9% 100 ML IV SCH ×2 (07:53→20:26)
[2017-02-24] MEDS: GABAPENTIN 100 MG CAPSULE PO SCH ×3 (07:53→17:52)
[2017-02-24] MEDS: CALCIUM ACETATE 667 MG CAPSULE PO SCH ×3 (07:54→17:22)
[2017-02-24] MEDS ORDERED: ISOSORBIDE MONONITRATE 20 MG TABLET PO SCH (09:00)
[2017-02-24] MEDS ORDERED: SENNA/DOCUSATE TABLET PO SCH (09:00)
[2017-02-24] MEDS: OMEPRAZOLE 20 MG CAPSULE.DR PO SCH ×2 (09:09→20:26)
[2017-02-24] MEDS: CLOPIDOGREL 75 MG TABLET PO SCH (09:09)
[2017-02-24] MEDS: FUROSEMIDE 80 MG TABLET PO SCH (09:10)
[2017-02-24] MEDS: FLUOXETINE 20 MG CAPSULE PO SCH (09:10)
[2017-02-24] MEDS: SEVELAMER 800MG TABLET PO SCH ×3 (09:11→20:26)
[2017-02-24 09:15] VITALS: BP 108/60
[2017-02-24 13:08] VITALS: BP 99/53
[2017-02-24] MEDS: metroNIDAZOLE 500 MG TABLET PO SCH ×2 (15:08→22:51)
[2017-02-24] MEDS: CARVEDILOL 3.125 MG TABLET PO SCH (17:22)
[2017-02-24 20:02] VITALS: BP 91/52
[2017-02-24] MEDS: ATORVASTATIN 20 MG TABLET PO SCH (20:26)
[2017-02-25 01:01] VITALS: BP_SYST 107; BP_SYST 89; BP_DIAS 48; BP_DIAS 58
[2017-02-25] MEDS: ONDANSETRON ODT 4 MG PO SCH ×4 (01:11→19:30)
[2017-02-25] MEDS: HEPARIN 5,000 UNITS/ML, 1ML SQ SCH ×3 (04:29→20:52)
[2017-02-25] MEDS: CARVEDILOL 3.125 MG TABLET PO SCH ×2 (06:00→17:50)
[2017-02-25 06:01] VITALS: BP 94/53
[2017-02-25] MEDS: metroNIDAZOLE 500 MG TABLET PO SCH ×3 (06:02→23:07)
[2017-02-25] MEDS: INSULIN ASPART 100 UNITS/ML, PEN SQ-INSULIN SCH ×4 (07:00→20:53)
[2017-02-25 07:12] VITALS: BP 108/58
[2017-02-25] MEDS: ALBUTEROL/IPRATROPIUM 2.5MG/0.5MG, 3 ML NPPB SCH ×2 (08:42→18:59)
[2017-02-25] MEDS: CEFTAROLINE 200 MG in SODIUM CHLORIDE 0.9% 100 ML IV SCH ×2 (08:53→20:52)
[2017-02-25] MEDS: ISOSORBIDE MONONITRATE 20 MG TABLET PO SCH (08:53)
[2017-02-25] MEDS: SENNA/DOCUSATE TABLET PO SCH (08:54)
[2017-02-25] MEDS: GABAPENTIN 100 MG CAPSULE PO SCH ×3 (08:55→17:50)
[2017-02-25] MEDS: OMEPRAZOLE 20 MG CAPSULE.DR PO SCH ×2 (08:55→20:53)
[2017-02-25] MEDS: FUROSEMIDE 80 MG TABLET PO SCH (08:55)
[2017-02-25] MEDS: FLUOXETINE 20 MG CAPSULE PO SCH (08:56)
[2017-02-25] MEDS: CALCIUM ACETATE 667 MG CAPSULE PO SCH ×3 (08:56→16:46)
[2017-02-25] MEDS: CLOPIDOGREL 75 MG TABLET PO SCH (08:56)
[2017-02-25] MEDS: SEVELAMER 800MG TABLET PO SCH ×3 (08:56→20:53)
[2017-02-25] MEDS ORDERED: CYCLOBENZAPRINE 10 MG TABLET PO PRN (12:00)
[2017-02-25] MEDS: ACETAMINOPHEN 500 MG TABLET PO SCH ×2 (12:51→20:53)
[2017-02-25] MEDS: LACTOBACILLUS CHEW TABLET PO SCH ×3 (12:51→20:52)
[2017-02-25 14:55] VITALS: BP 99/54
[2017-02-25 20:00] VITALS: BP 94/53
[2017-02-25] MEDS: ATORVASTATIN 20 MG TABLET PO SCH (20:52)
[2017-02-25] MEDS: ACETAMINOPHEN 325 MG TABLET PO PRN (20:54)
[2017-02-26] MEDS: ONDANSETRON ODT 4 MG PO SCH ×4 (01:30→19:30)
[2017-02-26 01:38] VITALS: BP 94/52
[2017-02-26] MEDS: HYDROcodone/APAP 5/325 TABLET PO PRN (04:33)
[2017-02-26] MEDS: HEPARIN 5,000 UNITS/ML, 1ML SQ SCH ×3 (04:33→22:43)
[2017-02-26 05:22] LABS: BLOOD UREA NITROGEN 45 mg/dL (7-18)
[2017-02-26 05:24] LABS: ASPARTATE AMINO TRANSFERASE 16 U/L (15-37)
[2017-02-26] MEDS: CARVEDILOL 3.125 MG TABLET PO SCH ×2 (06:00→17:29)
[2017-02-26 06:04] LABS: DIFF TOTAL CELLS COUNTED 100 CELL DIFF
[2017-02-26 06:06] LABS: ANISOCYTOSIS 1+; OVALOCYTES 1+; POLYCHROMASIA 1+; VERIFY COUNTS? YES
[2017-02-26] MEDS: metroNIDAZOLE 500 MG TABLET PO SCH ×3 (06:27→21:53)
[2017-02-26] MEDS: INSULIN ASPART 100 UNITS/ML, PEN SQ-INSULIN SCH ×4 (07:00→21:00)
[2017-02-26 08:04] VITALS: BP 96/54
[2017-02-26] MEDS: ACETAMINOPHEN 500 MG TABLET PO SCH ×3 (08:35→21:53)
[2017-02-26] MEDS: ISOSORBIDE MONONITRATE 20 MG TABLET PO SCH (08:38)
[2017-02-26] MEDS: SENNA/DOCUSATE TABLET PO SCH (08:40)
[2017-02-26 08:45] VITALS: BP 111/66
[2017-02-26] MEDS: OMEPRAZOLE 20 MG CAPSULE.DR PO SCH ×2 (08:48→21:53)
[2017-02-26] MEDS: CALCIUM ACETATE 667 MG CAPSULE PO SCH ×3 (08:48→17:00)
[2017-02-26] MEDS: LACTOBACILLUS CHEW TABLET PO SCH ×3 (08:48→21:52)
[2017-02-26] MEDS: GABAPENTIN 100 MG CAPSULE PO SCH ×3 (08:48→17:29)
[2017-02-26] MEDS: CLOPIDOGREL 75 MG TABLET PO SCH (08:48)
[2017-02-26] MEDS: CEFTAROLINE 200 MG in SODIUM CHLORIDE 0.9% 100 ML IV SCH ×2 (08:48→22:42)
[2017-02-26] MEDS: FUROSEMIDE 80 MG TABLET PO SCH (08:48)
[2017-02-26] MEDS: FLUOXETINE 20 MG CAPSULE PO SCH (08:49)
[2017-02-26] MEDS: SEVELAMER 800MG TABLET PO SCH ×3 (08:49→21:00)
[2017-02-26] MEDS: ALBUTEROL/IPRATROPIUM 2.5MG/0.5MG, 3 ML NPPB SCH ×2 (12:00→20:09)
[2017-02-26 13:50] VITALS: BP 110/55
[2017-02-26] MEDS: ALBUMIN HUMAN 25% 100 ML IV PRN (18:40)
[2017-02-26] MEDS: ALBUMIN HUMAN 25% 50 ML IV PRN ×3 (19:05→21:30)
[2017-02-26] MEDS: ATORVASTATIN 20 MG TABLET PO SCH (21:53)
[2017-02-26 22:15] VITALS: BP 97/65
[2017-02-27 01:24] VITALS: BP 100/58
[2017-02-27] MEDS: ONDANSETRON ODT 4 MG PO SCH ×4 (01:29→19:30)
[2017-02-27 05:30] LABS: BLOOD UREA NITROGEN 29 mg/dL (7-18)
[2017-02-27 05:49] LABS: DIFF TOTAL CELLS COUNTED 100 CELL DIFF
[2017-02-27 05:52] LABS: ANISOCYTOSIS 1+; POLYCHROMASIA 1+; VERIFY COUNTS? YES
[2017-02-27 05:53] LABS: OVALOCYTES 1+
[2017-02-27 05:55] VITALS: BP 100/57
[2017-02-27] MEDS: CARVEDILOL 3.125 MG TABLET PO SCH (05:56)
[2017-02-27] MEDS: HEPARIN 5,000 UNITS/ML, 1ML SQ SCH ×3 (05:57→21:20)
[2017-02-27] MEDS: metroNIDAZOLE 500 MG TABLET PO SCH (05:57)
[2017-02-27] MEDS: INSULIN ASPART 100 UNITS/ML, PEN SQ-INSULIN SCH ×4 (07:00→21:00)
[2017-02-27] MEDS: ALBUTEROL/IPRATROPIUM 2.5MG/0.5MG, 3 ML NPPB SCH ×2 (07:44→20:25)
[2017-02-27 08:00] VITALS: BP 106/63
[2017-02-27] MEDS: GABAPENTIN 100 MG CAPSULE PO SCH ×3 (08:00→17:43)
[2017-02-27] MEDS: CALCIUM ACETATE 667 MG CAPSULE PO SCH ×3 (08:00→17:44)
[2017-02-27] MEDS: SENNA/DOCUSATE TABLET PO SCH (08:08)
[2017-02-27] MEDS: ISOSORBIDE MONONITRATE 20 MG TABLET PO SCH (08:50)
[2017-02-27] MEDS: ACETAMINOPHEN 500 MG TABLET PO SCH ×2 (09:00→21:16)
[2017-02-27] MEDS: SEVELAMER 800MG TABLET PO SCH ×3 (09:00→21:16)
[2017-02-27 09:07] LABS: HEPATITIS B SURFACE AG SCREEN Negative (Negative)
[2017-02-27] MEDS: FUROSEMIDE 80 MG TABLET PO SCH (10:25)
[2017-02-27] MEDS: CLOPIDOGREL 75 MG TABLET PO SCH (10:25)
[2017-02-27] MEDS: TAMSULOSIN 0.4 MG CAP.ER.24H PO SCH (10:25)
[2017-02-27] MEDS: OMEPRAZOLE 20 MG CAPSULE.DR PO SCH ×2 (10:25→21:16)
[2017-02-27] MEDS: LACTOBACILLUS CHEW TABLET PO SCH ×3 (10:25→21:16)
[2017-02-27] MEDS: CEFTAROLINE 200 MG in SODIUM CHLORIDE 0.9% 100 ML IV SCH (10:26)
[2017-02-27] MEDS: FLUOXETINE 20 MG CAPSULE PO SCH (10:29)
[2017-02-27 13:06] VITALS: BP 109/63
[2017-02-27] MEDS: VANCOMYCIN 50 MG/ML ORAL SUSP PO SCH ×2 (13:32→17:44)
[2017-02-27] MEDS: METRONIDAZOLE PMX 500MG/100ML 100 ML IV SCH (17:43)
[2017-02-27] MEDS ORDERED: CEFTAROLINE 200 MG in SODIUM CHLORIDE 0.9% 100 ML IV SCH (19:30)
[2017-02-27 20:31] VITALS: BP 107/63
[2017-02-27] MEDS: ATORVASTATIN 20 MG TABLET PO SCH (21:16)
[2017-02-28] MEDS: VANCOMYCIN 50 MG/ML ORAL SUSP PO SCH ×4 (00:19→18:21)
[2017-02-28] MEDS: METRONIDAZOLE PMX 500MG/100ML 100 ML IV SCH ×3 (00:19→21:07)
[2017-02-28] MEDS: ONDANSETRON ODT 4 MG PO SCH ×4 (00:32→19:30)
[2017-02-28 02:00] VITALS: BP 107/58
[2017-02-28 05:56] LABS: BLOOD UREA NITROGEN 45 mg/dL (7-18)
[2017-02-28] MEDS: HEPARIN 5,000 UNITS/ML, 1ML SQ SCH ×2 (06:04→16:01)
[2017-02-28 06:35] LABS: DIFF TOTAL CELLS COUNTED 100 CELL DIFF
[2017-02-28 06:37] LABS: ANISOCYTOSIS 1+; VERIFY COUNTS? YES
[2017-02-28 06:38] LABS: OVALOCYTES 1+; POLYCHROMASIA 1+
[2017-02-28 06:39] LABS: LARGE PLATELETS 1+
[2017-02-28] MEDS: INSULIN ASPART 100 UNITS/ML, PEN SQ-INSULIN SCH ×4 (07:00→20:12)
[2017-02-28] MEDS ORDERED: SODIUM CHLORIDE 0.9% 1,000 ML IV SCH ×2 (08:30→09:30)
[2017-02-28] MEDS: SENNA/DOCUSATE TABLET PO SCH (09:00)
[2017-02-28] MEDS: TAMSULOSIN 0.4 MG CAP.ER.24H PO SCH (09:03)
[2017-02-28] MEDS: ISOSORBIDE MONONITRATE 20 MG TABLET PO SCH (09:03)
[2017-02-28] MEDS: GABAPENTIN 100 MG CAPSULE PO SCH ×3 (09:03→18:21)
[2017-02-28] MEDS: CALCIUM ACETATE 667 MG CAPSULE PO SCH ×3 (09:03→17:00)
[2017-02-28] MEDS: SEVELAMER 800MG TABLET PO SCH ×3 (09:04→21:00)
[2017-02-28] MEDS: CLOPIDOGREL 75 MG TABLET PO SCH (09:04)
[2017-02-28] MEDS: ALBUTEROL/IPRATROPIUM 2.5MG/0.5MG, 3 ML NPPB SCH ×2 (09:05→21:00)
[2017-02-28] MEDS: FUROSEMIDE 80 MG TABLET PO SCH (09:05)
[2017-02-28] MEDS: ACETAMINOPHEN 325 MG TABLET PO PRN (09:05)
[2017-02-28] MEDS: FLUOXETINE 20 MG CAPSULE PO SCH (09:05)
[2017-02-28 09:10] VITALS: BP 105/65
[2017-02-28] MEDS: DOXYCYCLINE 100MG TABLET PO SCH ×2 (09:45→21:07)
[2017-02-28] MEDS: ACETAMINOPHEN 500 MG TABLET PO SCH ×2 (09:45→21:07)
[2017-02-28] MEDS ORDERED: OMNIPAQUE 350 MG/ML, 100ML BOTTLE ONE (12:25)
[2017-02-28] MEDS ORDERED: CEFTRIAXONE PMX 2GM/50ML 50 ML IV SCH (15:00)
[2017-02-28 15:01] VITALS: BP 104/60
[2017-02-28] MEDS ORDERED: PHARMACY MAY ADJ FOR RENAL FX MC PRN (16:30)
[2017-02-28 19:51] VITALS: BP 124/46
[2017-02-28] MEDS ORDERED: FAMOTIDINE 20 MG/2 ML IVPush SCH ×2 (21:00)
[2017-02-28] MEDS: DRONABINOL 2.5 MG CAPSULE PO SCH (21:07)
[2017-02-28] MEDS: ATORVASTATIN 20 MG TABLET PO SCH (21:07)
[2017-03-01] MEDS: VANCOMYCIN 50 MG/ML ORAL SUSP PO SCH ×5 (01:00→23:30)
[2017-03-01] MEDS: HEPARIN 5,000 UNITS/ML, 1ML SQ SCH ×3 (01:00→16:00)
[2017-03-01] MEDS: ONDANSETRON ODT 4 MG PO SCH ×4 (01:02→19:30)
[2017-03-01 01:40] VITALS: BP 100/61
[2017-03-01] MEDS: METRONIDAZOLE PMX 500MG/100ML 100 ML IV SCH ×3 (04:16→21:42)
[2017-03-01] MEDS: ASPIRIN 81 MG TABLET EC PO SCH (05:44)
[2017-03-01 05:54] LABS: ASPARTATE AMINO TRANSFERASE 20 U/L (15-37); BLOOD UREA NITROGEN 30 mg/dL (7-18)
[2017-03-01 06:10] LABS: DIFF TOTAL CELLS COUNTED 100 CELL DIFF
[2017-03-01 06:13] LABS: VERIFY COUNTS? YES
[2017-03-01 06:14] LABS: ANISOCYTOSIS 1+; POLYCHROMASIA 1+
[2017-03-01 06:15] LABS: OVALOCYTES 1+
[2017-03-01] MEDS: INSULIN ASPART 100 UNITS/ML, PEN SQ-INSULIN SCH ×4 (07:00→21:00)
[2017-03-01] MEDS: CALCIUM ACETATE 667 MG CAPSULE PO SCH ×3 (08:00→17:00)
[2017-03-01 08:30] VITALS: BP 103/58
[2017-03-01] MEDS: ACETAMINOPHEN 500 MG TABLET PO SCH ×2 (09:00→21:00)
[2017-03-01] MEDS: SEVELAMER 800MG TABLET PO SCH ×3 (09:00→21:00)
[2017-03-01] MEDS: DOXYCYCLINE 100MG TABLET PO SCH ×2 (09:00→21:34)
[2017-03-01] MEDS: FLUOXETINE 20 MG CAPSULE PO SCH (09:00)
[2017-03-01] MEDS: ALBUTEROL/IPRATROPIUM 2.5MG/0.5MG, 3 ML NPPB SCH ×2 (09:00→20:35)
[2017-03-01] MEDS: FUROSEMIDE 40 MG TABLET PO SCH (09:01)
[2017-03-01] MEDS: TAMSULOSIN 0.4 MG CAP.ER.24H PO SCH (09:01)
[2017-03-01] MEDS: ISOSORBIDE MONONITRATE 20 MG TABLET PO SCH (09:01)
[2017-03-01] MEDS: DRONABINOL 2.5 MG CAPSULE PO SCH ×2 (09:01→21:00)
[2017-03-01] MEDS: GABAPENTIN 100 MG CAPSULE PO SCH ×3 (09:02→18:00)
[2017-03-01] MEDS ORDERED: NALOXONE 0.4 MG/ML, 1ML IVPush ONE (09:30)
[2017-03-01] MEDS: THIAMINE 100MG TABLET PO SCH (09:57)
[2017-03-01] MEDS: FOLIC ACID 1 MG TABLET PO SCH (09:57)
[2017-03-01] MEDS: CLOPIDOGREL 75 MG TABLET PO SCH (09:57)
[2017-03-01] MEDS ORDERED: POTASSIUM CHLORIDE 20 MEQ, MAGNESIUM SULFATE 1 GM, THIAMINE 100 MG, FOLIC ACID 1 MG, MV... IV SCH (10:00)
[2017-03-01 13:45] VITALS: BP 96/55
[2017-03-01 16:12] VITALS: BP 107/58
[2017-03-01 16:46] LABS: ABG COLLECTION SITE LEFT RADIAL; COLLATERAL CIRCULATION TESTING NORMAL
[2017-03-01] MEDS ORDERED: MORPHINE SULFATE 4 MG/ML, 1ML IVPush PRN (17:00)
[2017-03-01] MEDS ORDERED: ATROPINE OPHTH SOLN 1%, 5ML BC PRN (17:00)
[2017-03-01] MEDS ORDERED: LORazepam INTENSOL 2 MG/ML SL PRN (17:00)
[2017-03-01] MEDS ORDERED: morphine SULFATE ORAL.CONC 20 MG/ML BC PRN (17:00)
[2017-03-01] MEDS ORDERED: HYDROmorphone 1 MG/ML, 1ML IVPush PRN (17:00)
[2017-03-01] MEDS: ATORVASTATIN 20 MG TABLET PO SCH (21:00)
[2017-03-02] MEDS: ONDANSETRON ODT 4 MG PO SCH ×4 (01:30→22:32)
[2017-03-02] MEDS: METRONIDAZOLE PMX 500MG/100ML 100 ML IV SCH ×3 (04:00→21:21)
[2017-03-02] MEDS: VANCOMYCIN 50 MG/ML ORAL SUSP PO SCH ×4 (05:30→23:06)
[2017-03-02 05:49] LABS: BLOOD UREA NITROGEN 47 mg/dL (7-18)
[2017-03-02 05:55] LABS: ASPARTATE AMINO TRANSFERASE 13 U/L (15-37); TOTAL IRON BINDING CAPACITY 190 mcg/dL (250-450)
[2017-03-02] MEDS: ASPIRIN 81 MG TABLET EC PO SCH ×2 (06:00→16:01)
[2017-03-02 06:32] LABS: DIFF TOTAL CELLS COUNTED 100 CELL DIFF
[2017-03-02 06:37] LABS: VERIFY COUNTS? YES
[2017-03-02 06:38] LABS: ANISOCYTOSIS 1+
[2017-03-02 06:42] LABS: OVALOCYTES 1+; POLYCHROMASIA 1+
[2017-03-02 06:46] LABS: LARGE PLATELETS 1+
[2017-03-02 06:51] LABS: HOWELL-JOLLY BODIES 1+
[2017-03-02] MEDS: INSULIN ASPART 100 UNITS/ML, PEN SQ-INSULIN SCH ×4 (07:00→22:31)
[2017-03-02] MEDS: CALCIUM ACETATE 667 MG CAPSULE PO SCH ×3 (08:00→17:00)
[2017-03-02] MEDS: HEPARIN 5,000 UNITS/ML, 1ML SQ SCH ×3 (08:00→16:01)
[2017-03-02] MEDS: GABAPENTIN 100 MG CAPSULE PO SCH ×3 (08:00→18:41)
[2017-03-02] MEDS: FUROSEMIDE 40 MG TABLET PO SCH (09:00)
[2017-03-02] MEDS: DOXYCYCLINE 100MG TABLET PO SCH ×2 (09:00→21:22)
[2017-03-02] MEDS: TAMSULOSIN 0.4 MG CAP.ER.24H PO SCH (09:00)
[2017-03-02] MEDS: ACETAMINOPHEN 500 MG TABLET PO SCH ×2 (09:00→21:22)
[2017-03-02] MEDS: DRONABINOL 2.5 MG CAPSULE PO SCH ×2 (09:00→22:32)
[2017-03-02] MEDS: SEVELAMER 800MG TABLET PO SCH ×3 (09:00→21:22)
[2017-03-02] MEDS: FOLIC ACID 1 MG TABLET PO SCH (09:00)
[2017-03-02] MEDS: CLOPIDOGREL 75 MG TABLET PO SCH ×2 (09:00→16:01)
[2017-03-02] MEDS: THIAMINE 100MG TABLET PO SCH (09:00)
[2017-03-02] MEDS: FLUOXETINE 20 MG CAPSULE PO SCH (09:00)
[2017-03-02] MEDS: ISOSORBIDE MONONITRATE ER 30 MG TABLET PO SCH (09:00)
[2017-03-02 20:00] VITALS: BP 96/55
[2017-03-02] MEDS: CYANOCOBALAMIN 1,000 MCG TABLET PO SCH (21:21)
[2017-03-02] MEDS: ATORVASTATIN 20 MG TABLET PO SCH (21:22)
[2017-03-02] MEDS: DARBEPOETIN 100 MCG/ML SQ SCH (22:32)
[2017-03-03 02:00] VITALS: BP 109/59
[2017-03-03] MEDS: HEPARIN 5,000 UNITS/ML, 1ML SQ SCH ×4 (04:50→23:40)
[2017-03-03] MEDS: ONDANSETRON ODT 4 MG PO SCH ×4 (04:50→21:21)
[2017-03-03] MEDS: METRONIDAZOLE PMX 500MG/100ML 100 ML IV SCH ×3 (04:53→21:20)
[2017-03-03 05:39] LABS: BLOOD UREA NITROGEN 36 mg/dL (7-18)
[2017-03-03] MEDS: VANCOMYCIN 50 MG/ML ORAL SUSP PO SCH ×4 (06:01→23:30)
[2017-03-03] MEDS: ASPIRIN 81 MG TABLET EC PO SCH (06:01)
[2017-03-03 06:08] LABS: DIFF TOTAL CELLS COUNTED 100 CELL DIFF
[2017-03-03 06:11] LABS: VERIFY COUNTS? YES
[2017-03-03 06:12] LABS: ANISOCYTOSIS 1+; OVALOCYTES 1+; POLYCHROMASIA 1+
[2017-03-03 06:13] LABS: GIANT PLATELETS 1+; LARGE PLATELETS 1+
[2017-03-03] MEDS: INSULIN ASPART 100 UNITS/ML, PEN SQ-INSULIN SCH ×4 (07:00→21:00)
[2017-03-03 08:18] VITALS: BP 115/64
[2017-03-03] MEDS: DRONABINOL 2.5 MG CAPSULE PO SCH ×2 (09:17→21:20)
[2017-03-03] MEDS: DOXYCYCLINE 100MG TABLET PO SCH (09:18)
[2017-03-03] MEDS: THIAMINE 100MG TABLET PO SCH (09:18)
[2017-03-03] MEDS: CALCIUM ACETATE 667 MG CAPSULE PO SCH ×3 (09:18→16:56)
[2017-03-03] MEDS: ACETAMINOPHEN 500 MG TABLET PO SCH ×2 (09:18→21:20)
[2017-03-03] MEDS: GABAPENTIN 100 MG CAPSULE PO SCH ×3 (09:18→17:55)
[2017-03-03] MEDS: SEVELAMER 800MG TABLET PO SCH ×3 (09:18→21:20)
[2017-03-03] MEDS: TAMSULOSIN 0.4 MG CAP.ER.24H PO SCH (09:18)
[2017-03-03] MEDS: CLOPIDOGREL 75 MG TABLET PO SCH (09:18)
[2017-03-03] MEDS: FOLIC ACID 1 MG TABLET PO SCH (09:19)
[2017-03-03] MEDS: ISOSORBIDE MONONITRATE ER 30 MG TABLET PO SCH (09:19)
[2017-03-03] MEDS: FUROSEMIDE 40 MG TABLET PO SCH (09:19)
[2017-03-03] MEDS: FLUOXETINE 20 MG CAPSULE PO SCH (09:21)
[2017-03-03] MEDS ORDERED: PHARMACY MAY ADJ FOR RENAL FX MC PRN (15:30)
[2017-03-03 16:20] VITALS: BP 95/55
[2017-03-03] MEDS: LINEZOLID 600 MG TABLET PO SCH (16:55)
[2017-03-03] MEDS ORDERED: VANCOMYCIN 50 MG/ML ORAL SUSP PO SCH (17:30)
[2017-03-03 20:35] VITALS: BP 127/67
[2017-03-03] MEDS: ATORVASTATIN 20 MG TABLET PO SCH (21:20)
[2017-03-04 03:08] VITALS: BP 108/64
[2017-03-04] MEDS: ONDANSETRON ODT 4 MG PO SCH ×4 (04:30→23:31)
[2017-03-04] MEDS: ASPIRIN 81 MG TABLET EC PO SCH (04:57)
[2017-03-04] MEDS: METRONIDAZOLE PMX 500MG/100ML 100 ML IV SCH ×3 (04:57→20:50)
[2017-03-04] MEDS: LINEZOLID 600 MG TABLET PO SCH ×2 (04:57→15:55)
[2017-03-04] MEDS: VANCOMYCIN 50 MG/ML ORAL SUSP PO SCH ×4 (04:57→23:32)
[2017-03-04 05:26] LABS: ASPARTATE AMINO TRANSFERASE 20 U/L (15-37); BLOOD UREA NITROGEN 56 mg/dL (7-18)
[2017-03-04 06:10] LABS: DIFF TOTAL CELLS COUNTED 100 CELL DIFF
[2017-03-04 06:11] LABS: VERIFY COUNTS? YES
[2017-03-04 06:12] LABS: ANISOCYTOSIS 1+; GIANT PLATELETS 1+; LARGE PLATELETS 1+; POLYCHROMASIA 1+
[2017-03-04] MEDS: INSULIN ASPART 100 UNITS/ML, PEN SQ-INSULIN SCH ×4 (07:00→20:50)
[2017-03-04 08:12] VITALS: BP 114/64
[2017-03-04] MEDS: DRONABINOL 2.5 MG CAPSULE PO SCH ×2 (10:16→20:50)
[2017-03-04] MEDS: GABAPENTIN 100 MG CAPSULE PO SCH ×3 (10:16→16:51)
[2017-03-04] MEDS: TAMSULOSIN 0.4 MG CAP.ER.24H PO SCH (10:17)
[2017-03-04] MEDS: CLOPIDOGREL 75 MG TABLET PO SCH (10:17)
[2017-03-04] MEDS: FUROSEMIDE 40 MG TABLET PO SCH (10:17)
[2017-03-04] MEDS: ACETAMINOPHEN 500 MG TABLET PO SCH ×2 (10:17→20:50)
[2017-03-04] MEDS: SEVELAMER 800MG TABLET PO SCH ×3 (10:17→20:50)
[2017-03-04] MEDS: ISOSORBIDE MONONITRATE ER 30 MG TABLET PO SCH (10:17)
[2017-03-04] MEDS: CALCIUM ACETATE 667 MG CAPSULE PO SCH ×3 (10:17→16:51)
[2017-03-04] MEDS: FLUOXETINE 20 MG CAPSULE PO SCH (10:17)
[2017-03-04] MEDS: FOLIC ACID 1 MG TABLET PO SCH (10:17)
[2017-03-04] MEDS: THIAMINE 100MG TABLET PO SCH (10:17)
[2017-03-04] MEDS: HEPARIN 5,000 UNITS/ML, 1ML SQ SCH ×3 (10:18→23:31)
[2017-03-04 14:55] VITALS: BP 106/58
[2017-03-04] MEDS ORDERED: ACETAMINOPHEN 325 MG TABLET ONE (15:48)
[2017-03-04 16:02] VITALS: BP 106/58
[2017-03-04] MEDS: ATORVASTATIN 20 MG TABLET PO SCH (20:50)
[2017-03-04 21:34] VITALS: BP 109/64
[2017-03-05 03:24] VITALS: BP 98/57
[2017-03-05] MEDS: ONDANSETRON ODT 4 MG PO SCH ×4 (04:43→23:09)
[2017-03-05] MEDS: LINEZOLID 600 MG TABLET PO SCH ×2 (04:43→17:08)
[2017-03-05] MEDS: METRONIDAZOLE PMX 500MG/100ML 100 ML IV SCH ×3 (04:43→21:30)
[2017-03-05 05:16] LABS: BLOOD UREA NITROGEN 67 mg/dL (7-18)
[2017-03-05] MEDS: VANCOMYCIN 50 MG/ML ORAL SUSP PO SCH ×4 (05:49→23:09)
[2017-03-05] MEDS: ASPIRIN 81 MG TABLET EC PO SCH (05:50)
[2017-03-05 05:52] LABS: DIFF TOTAL CELLS COUNTED 100 CELL DIFF
[2017-03-05 05:53] LABS: VERIFY COUNTS? YES
[2017-03-05 05:54] LABS: ANISOCYTOSIS 1+; GIANT PLATELETS 1+; LARGE PLATELETS 1+; POLYCHROMASIA 1+
[2017-03-05 06:52] VITALS: BP 102/63
[2017-03-05] MEDS: INSULIN ASPART 100 UNITS/ML, PEN SQ-INSULIN SCH ×4 (07:00→21:00)
[2017-03-05] MEDS: GABAPENTIN 100 MG CAPSULE PO SCH ×3 (08:00→17:58)
[2017-03-05] MEDS: DRONABINOL 2.5 MG CAPSULE PO SCH ×2 (09:00→21:32)
[2017-03-05] MEDS: FOLIC ACID 1 MG TABLET PO SCH (09:00)
[2017-03-05] MEDS: CALCIUM ACETATE 667 MG CAPSULE PO SCH ×3 (09:04→17:08)
[2017-03-05] MEDS: SEVELAMER 800MG TABLET PO SCH ×3 (09:04→21:32)
[2017-03-05] MEDS ORDERED: ALBUMIN HUMAN 25% 50 ML IV PRN (09:30)
[2017-03-05] MEDS ORDERED: ALBUMIN HUMAN 25% 100 ML IV PRN (09:30)
[2017-03-05] MEDS: ALBUMIN HUMAN 25% 100 ML IV PRN (09:44)
[2017-03-05] MEDS: ALBUMIN HUMAN 25% 50 ML IV PRN (11:15)
[2017-03-05 13:44] VITALS: BP 112/68
[2017-03-05] MEDS: FLUOXETINE 20 MG CAPSULE PO SCH (14:29)
[2017-03-05] MEDS: TAMSULOSIN 0.4 MG CAP.ER.24H PO SCH (14:29)
[2017-03-05] MEDS: THIAMINE 100MG TABLET PO SCH (14:29)
[2017-03-05] MEDS: CLOPIDOGREL 75 MG TABLET PO SCH (14:29)
[2017-03-05] MEDS: ACETAMINOPHEN 500 MG TABLET PO SCH ×2 (14:29→21:32)
[2017-03-05] MEDS: ISOSORBIDE MONONITRATE ER 30 MG TABLET PO SCH (14:30)
[2017-03-05] MEDS: FUROSEMIDE 40 MG TABLET PO SCH (14:30)
[2017-03-05] MEDS: HEPARIN 5,000 UNITS/ML, 1ML SQ SCH ×3 (14:35→23:57)
[2017-03-05] MEDS: ATORVASTATIN 20 MG TABLET PO SCH (21:32)
[2017-03-05 22:04] VITALS: BP 116/64
[2017-03-06 00:32] VITALS: BP 105/63
[2017-03-06] MEDS: METRONIDAZOLE PMX 500MG/100ML 100 ML IV SCH ×3 (04:52→22:25)
[2017-03-06] MEDS: ONDANSETRON ODT 4 MG PO SCH ×3 (04:52→17:42)
[2017-03-06] MEDS: VANCOMYCIN 50 MG/ML ORAL SUSP PO SCH ×3 (04:52→17:42)
[2017-03-06] MEDS: LINEZOLID 600 MG TABLET PO SCH ×2 (04:52→16:39)
[2017-03-06 05:42] LABS: BLOOD UREA NITROGEN 44 mg/dL (7-18)
[2017-03-06 05:53] LABS: DIFF TOTAL CELLS COUNTED 100 CELL DIFF
[2017-03-06] MEDS: ASPIRIN 81 MG TABLET EC PO SCH (05:53)
[2017-03-06 05:56] LABS: ANISOCYTOSIS 1+; VERIFY COUNTS? YES
[2017-03-06 05:57] LABS: GIANT PLATELETS 1+; LARGE PLATELETS 1+; POLYCHROMASIA 1+
[2017-03-06] MEDS: INSULIN ASPART 100 UNITS/ML, PEN SQ-INSULIN SCH ×4 (07:00→20:46)
[2017-03-06 08:16] VITALS: BP 100/56
[2017-03-06] MEDS: FUROSEMIDE 40 MG TABLET PO SCH (09:00)
[2017-03-06] MEDS: ISOSORBIDE MONONITRATE ER 30 MG TABLET PO SCH (09:00)
[2017-03-06] MEDS: GABAPENTIN 100 MG CAPSULE PO SCH ×3 (09:10→18:28)
[2017-03-06] MEDS: CALCIUM ACETATE 667 MG CAPSULE PO SCH ×3 (09:10→17:43)
[2017-03-06] MEDS: TAMSULOSIN 0.4 MG CAP.ER.24H PO SCH (09:11)
[2017-03-06] MEDS: FOLIC ACID 1 MG TABLET PO SCH (09:11)
[2017-03-06] MEDS: HEPARIN 5,000 UNITS/ML, 1ML SQ SCH (09:11)
[2017-03-06] MEDS: FLUOXETINE 20 MG CAPSULE PO SCH (09:12)
[2017-03-06] MEDS: DRONABINOL 2.5 MG CAPSULE PO SCH ×2 (09:12→20:46)
[2017-03-06] MEDS: ACETAMINOPHEN 500 MG TABLET PO SCH ×2 (09:12→20:46)
[2017-03-06] MEDS: SEVELAMER 800MG TABLET PO SCH ×3 (09:12→20:46)
[2017-03-06] MEDS: CLOPIDOGREL 75 MG TABLET PO SCH (09:12)
[2017-03-06 09:14] VITALS: BP 99/58
[2017-03-06] MEDS ORDERED: TAMS-11 PO (10:18)
[2017-03-06] MEDS ORDERED: LINE600T7 PO (10:18)
[2017-03-06] MEDS ORDERED: VANC1VIA3 PO (10:18)
[2017-03-06] MEDS ORDERED: DRON2.5C2 PO (10:18)
[2017-03-06] MEDS ORDERED: FOLI-17 PO (10:18)
[2017-03-06] MEDS ORDERED: ASPI-621 PO (10:21)
[2017-03-06] MEDS ORDERED: FURO40TA6 PO (10:22)
[2017-03-06] MEDS ORDERED: ISOS30TA8 PO (10:22)
[2017-03-06] MEDS ORDERED: ISOSORBIDE MONONITRATE ER 30 MG TABLET PO PRN (11:00)
[2017-03-06 13:34] VITALS: BP 111/63
[2017-03-06 19:25] VITALS: BP 106/63
[2017-03-06] MEDS: ATORVASTATIN 20 MG TABLET PO SCH (20:46)
[2017-03-07] MEDS: VANCOMYCIN 50 MG/ML ORAL SUSP PO SCH ×4 (00:26→18:03)
[2017-03-07] MEDS: ONDANSETRON ODT 4 MG PO SCH ×4 (00:26→18:03)
[2017-03-07 00:53] VITALS: BP 102/58
[2017-03-07] MEDS: LINEZOLID 600 MG TABLET PO SCH ×2 (05:16→17:10)
[2017-03-07 05:45] LABS: BLOOD UREA NITROGEN 57 mg/dL (7-18)
[2017-03-07 05:58] LABS: DIFF TOTAL CELLS COUNTED 100 CELL DIFF
[2017-03-07 06:02] LABS: ANISOCYTOSIS 1+; VERIFY COUNTS? YES
[2017-03-07 06:03] LABS: OVALOCYTES 1+; POLYCHROMASIA 1+; TARGET CELLS 1+
[2017-03-07 06:04] LABS: GIANT PLATELETS 1+; LARGE PLATELETS 1+
[2017-03-07 06:06] LABS: MICROCYTOSIS 1+
[2017-03-07] MEDS: METRONIDAZOLE PMX 500MG/100ML 100 ML IV SCH ×2 (06:11→20:30)
[2017-03-07] MEDS: INSULIN ASPART 100 UNITS/ML, PEN SQ-INSULIN SCH ×4 (07:00→20:30)
[2017-03-07 08:23] VITALS: BP 102/62
[2017-03-07] MEDS: CLOPIDOGREL 75 MG TABLET PO SCH (09:20)
[2017-03-07] MEDS: FLUOXETINE 20 MG CAPSULE PO SCH (09:20)
[2017-03-07] MEDS: SEVELAMER 800MG TABLET PO SCH ×3 (09:20→20:29)
[2017-03-07] MEDS: ACETAMINOPHEN 500 MG TABLET PO SCH ×2 (09:20→20:29)
[2017-03-07] MEDS: FUROSEMIDE 40 MG TABLET PO SCH (09:20)
[2017-03-07] MEDS: GABAPENTIN 100 MG CAPSULE PO SCH ×3 (09:21→18:03)
[2017-03-07] MEDS: DRONABINOL 2.5 MG CAPSULE PO SCH ×2 (09:21→20:29)
[2017-03-07] MEDS: CALCIUM ACETATE 667 MG CAPSULE PO SCH ×3 (09:21→17:10)
[2017-03-07] MEDS: TAMSULOSIN 0.4 MG CAP.ER.24H PO SCH (09:21)
[2017-03-07] MEDS: FOLIC ACID 1 MG TABLET PO SCH (09:21)
[2017-03-07 12:30] VITALS: BP 148/72
[2017-03-07] MEDS: ALBUMIN HUMAN 25% 50 ML IV PRN (15:17)
[2017-03-07 19:44] VITALS: BP 115/61
[2017-03-07] MEDS: ATORVASTATIN 20 MG TABLET PO SCH (20:29)
[2017-03-08] MEDS: VANCOMYCIN 50 MG/ML ORAL SUSP PO SCH ×3 (00:45→12:53)
[2017-03-08] MEDS: ONDANSETRON ODT 4 MG PO SCH ×3 (00:45→12:00)
[2017-03-08 02:00] VITALS: BP 100/56
[2017-03-08 02:54] LABS: OCCBLD OBC PASS
[2017-03-08] MEDS: METRONIDAZOLE PMX 500MG/100ML 100 ML IV SCH ×2 (04:43→12:00)
[2017-03-08] MEDS: LINEZOLID 600 MG TABLET PO SCH (05:19)
[2017-03-08 06:15] LABS: DIFF TOTAL CELLS COUNTED 100 CELL DIFF
[2017-03-08 06:16] LABS: ANISOCYTOSIS 1+; HOWELL-JOLLY BODIES 1+; MICROCYTOSIS 1+; POLYCHROMASIA 1+; VERIFY COUNTS? YES
[2017-03-08 06:34] LABS: BLOOD UREA NITROGEN 38 mg/dL (7-18)
[2017-03-08] MEDS: INSULIN ASPART 100 UNITS/ML, PEN SQ-INSULIN SCH ×2 (07:00→11:00)
[2017-03-08 07:15] VITALS: BP 101/62
[2017-03-08] MEDS: FLUOXETINE 20 MG CAPSULE PO SCH (08:27)
[2017-03-08] MEDS: TAMSULOSIN 0.4 MG CAP.ER.24H PO SCH (08:27)
[2017-03-08] MEDS: CLOPIDOGREL 75 MG TABLET PO SCH (08:27)
[2017-03-08] MEDS: FUROSEMIDE 40 MG TABLET PO SCH (08:27)
[2017-03-08] MEDS: FOLIC ACID 1 MG TABLET PO SCH (08:27)
[2017-03-08] MEDS: SEVELAMER 800MG TABLET PO SCH (08:27)
[2017-03-08] MEDS: CALCIUM ACETATE 667 MG CAPSULE PO SCH ×2 (08:27→12:53)
[2017-03-08] MEDS: ACETAMINOPHEN 500 MG TABLET PO SCH (08:27)
[2017-03-08] MEDS: GABAPENTIN 100 MG CAPSULE PO SCH (08:28)
[2017-03-08] MEDS: DRONABINOL 2.5 MG CAPSULE PO SCH (08:37)
[2017-03-08] MEDS ORDERED: LINE600T7 PO (11:18)
== END 2017-03-08 13:30 | DRG 871 ==
LOC: ED 14:21 → EDIP 16:40 → 4WST 18:34
PROVIDERS: ADMIT Internal Medicine; ATTEND Internal Medicine
PROC: 5A1D60Z (ICD-10-PCS; principal; 2017-02-26)
DX: A41.9 Sepsis, unspecified organism (principal); E43 Unspecified severe protein-calorie malnutrition; N18.6 End stage renal disease; S32.020A Wedge compression fracture of second lumbar vertebra, initial encounter for closed fracture; L03.115 Cellulitis of right lower limb; A04.7 Enterocolitis due to Clostridium difficile; I50.22 Chronic systolic (congestive) heart failure; J98.11 Atelectasis; C90.00 Multiple myeloma not having achieved remission; I13.2 Hypertensive heart and chronic kidney disease with heart failure and with stage 5 chronic kidney disease, or end stage renal disease; D47.2 Monoclonal gammopathy; G89.29 Other chronic pain; D63.1 Anemia in chronic kidney disease; E11.22 Type 2 diabetes mellitus with diabetic chronic kidney disease; I25.10 Atherosclerotic heart disease of native coronary artery without angina pectoris; I27.2 Other secondary pulmonary hypertension; I48.0 Paroxysmal atrial fibrillation; J32.9 Chronic sinusitis, unspecified; K74.69 Other cirrhosis of liver; M19.90 Unspecified osteoarthritis, unspecified site; M48.00 Spinal stenosis, site unspecified; M51.34 Other intervertebral disc degeneration, thoracic region; M85.80 Other specified disorders of bone density and structure, unspecified site; N25.0 Renal osteodystrophy; N40.0 Benign prostatic hyperplasia without lower urinary tract symptoms; W01.0XXA Fall on same level from slipping, tripping and stumbling without subsequent striking against object, initial encounter; Z86.19 Personal history of other infectious and parasitic diseases; I25.2 Old myocardial infarction; Z68.38 Body mass index [BMI] 38.0-38.9, adult; Z86.73 Personal history of transient ischemic attack (TIA), and cerebral infarction without residual deficits; Z87.891 Personal history of nicotine dependence; Z90.81 Acquired absence of spleen; Z95.5 Presence of coronary angioplasty implant and graft; Z99.2 Dependence on renal dialysis; Z99.81 Dependence on supplemental oxygen; Z87.01 Personal history of pneumonia (recurrent); Z86.14 Personal history of Methicillin resistant Staphylococcus aureus infection; Z90.49 Acquired absence of other specified parts of digestive tract; Z90.89 Acquired absence of other organs; Z66 Do not resuscitate
CPT/HCPCS: 36415; 36600; 70450; 71010; 72072; 72110; 72125; 72190; 74000; 74177; 80048; 80053; 80061; 80069; 81001; 82040; 82140; 82272; 82274; 82728; 82803; 82962; 83036; 83540; 83550; 83605; 83735; 84100; 84145; 84439; 84443; 84550; 85014; 85018; 85025; 86704; 86706; 87040; 87070; 87077; 87086; 87186; 87205; 87324; 87340; 93005; 94640; 96374; 96375; 96376; J0696; J0712; J0881; J1644; J1815; J2310; J2405; J3370; J3411; J3475; J3480; J7620; P9047; Q0162; Q0167; Q9967; J7030; S0028

== ENCOUNTER 2017-03-14 03:33 | Inpatient (IN) | payer MEDICARE ==
[~2017-03-14] VITALS: Ht 177.8 cm; Wt 120.8 kg
[~2017-03-14 03:33] MED LIST changes: +ASPI-621 PO; +DRON2.5C2 PO; +ISOS30TA8 PO; +LINE600T7 PO; +METF500T4 PO
[2017-03-14 04:04] LABS: BLOOD UREA NITROGEN 52 mg/dL (7-18)
[2017-03-14 04:09] LABS: DIFF TOTAL CELLS COUNTED 100 CELL DIFF
[2017-03-14 04:11] LABS: IS PT STATUS REG ER OR PRE ER? YES
[2017-03-14 04:12] LABS: VERIFY COUNTS? YES
[2017-03-14 04:13] LABS: ANISOCYTOSIS 1+; POLYCHROMASIA 1+
[2017-03-14 04:14] LABS: LARGE PLATELETS 1+
[2017-03-14] MEDS ORDERED: NITROGLYCERIN OINT 2%, 1GM TP ONE ×2 (04:20→04:30)
[2017-03-14] MEDS ORDERED: SEVE800T8 PO (04:36)
[2017-03-14] MEDS ORDERED: VANCOMYCIN (04:36)
[2017-03-14] MEDS ORDERED: AMLO5TAB2 PO (04:36)
[2017-03-14] MEDS ORDERED: VANCOMYCIN PO (04:36)
[2017-03-14] MEDS ORDERED: FLUO20CA8 PO (04:36)
[2017-03-14] MEDS ORDERED: CALC667C PO (04:36)
[2017-03-14] MEDS ORDERED: PANT40TA3 PO (04:36)
[2017-03-14] MEDS ORDERED: MIRALAX PO (04:36)
[2017-03-14] MEDS ORDERED: ASPI-496 PO (04:36)
[2017-03-14] MEDS ORDERED: ACET325T14 PO (04:36)
[2017-03-14] MEDS ORDERED: CYAN100028 PO (04:36)
[2017-03-14] MEDS ORDERED: ALLO100T30 PO (04:36)
[2017-03-14] MEDS ORDERED: INSU100C SQ-INSULIN (04:36)
[2017-03-14] MEDS ORDERED: FERR324T5 PO (04:36)
[2017-03-14] MEDS ORDERED: SENN8.6T64 PO (04:36)
[2017-03-14] MEDS ORDERED: RANO500T2 PO (04:36)
[2017-03-14] MEDS ORDERED: NITROGLYCERIN SL (04:36)
[2017-03-14] MEDS ORDERED: TRAM50TA2 PO (04:36)
[2017-03-14] MEDS ORDERED: DEXTROSE 50%, 50ML VIAL ONE (04:39)
[2017-03-14] MEDS ORDERED: MORPHINE SULFATE 4 MG/ML, 1ML ONE ×2 (04:46→13:35)
[2017-03-14] MEDS ORDERED: MORPHINE SULFATE 4 MG/ML, 1ML IVPush PRN ×2 (05:00→06:30)
[2017-03-14] MEDS ORDERED: DEXTROSE 50%, 50ML SYRINGE IVPush ONE (05:00)
[2017-03-14] MEDS ORDERED: SODIUM CHLORIDE 0.9% 1,000ML IVBOLUS ONE (05:00)
[2017-03-14] MEDS ORDERED: HEPARIN 5,000 UNITS/ML, 1ML IV PRN (05:30)
[2017-03-14] MEDS ORDERED: HEPARIN 25,000 UNITS/500ML PMX 500 ML IV PRN ×2 (05:30→08:30)
[2017-03-14] MEDS ORDERED: HEPARIN 5,000 UNITS/ML, 1ML IV ONE (05:30)
[2017-03-14] MEDS ORDERED: HEPARIN 5,000 UNITS/ML, 1ML ONE (05:33)
[2017-03-14] MEDS ORDERED: HEPARIN 25,000 UNITS/500ML PMX 500 ML ONE (05:34)
[2017-03-14] MEDS ORDERED: ONDANSETRON 2MG/ML, 2ML IVPush PRN ×2 (06:30→08:00)
[2017-03-14] MEDS: VANCOMYCIN 50 MG/ML ORAL SUSP PO SCH ×2 (08:00→15:08)
[2017-03-14] MEDS ORDERED: LABETALOL 5MG/ML, 20ML IVPush PRN (08:00)
[2017-03-14] MEDS ORDERED: POLYETHYLENE GLYCOL 17 GM PACKET PO PRN (08:00)
[2017-03-14] MEDS ORDERED: GABAPENTIN 100 MG CAPSULE PO SCH (08:00)
[2017-03-14] MEDS ORDERED: GUAIFENESIN/DM 200-20MG, 10ML UDC PO PRN (08:00)
[2017-03-14] MEDS ORDERED: ONDANSETRON ODT 4 MG PO PRN (08:00)
[2017-03-14] MEDS: FOLIC ACID 1 MG TABLET PO SCH (09:00)
[2017-03-14] MEDS ORDERED: ALLOPURINOL 100 MG TABLET PO SCH (09:00)
[2017-03-14] MEDS ORDERED: CLOPIDOGREL 75 MG TABLET PO SCH (09:00)
[2017-03-14] MEDS ORDERED: PANTOPROZOLE 40MG TABLET PO SCH (09:00)
[2017-03-14] MEDS ORDERED: ALBUTEROL/IPRATROPIUM 2.5MG/0.5MG, 3 ML NPPB PRN (09:00)
[2017-03-14] MEDS ORDERED: TAMSULOSIN 0.4 MG CAP.ER.24H PO SCH (09:00)
[2017-03-14] MEDS: SENNA/DOCUSATE TABLET PO SCH (09:00)
[2017-03-14] MEDS ORDERED: ASPIRIN 81 MG TABLET EC PO SCH (09:00)
[2017-03-14] MEDS: RANOLAZINE 500 MG TAB.ER.12H PO SCH ×2 (09:00→22:56)
[2017-03-14] MEDS: DRONABINOL 2.5 MG CAPSULE PO SCH ×2 (09:00→21:00)
[2017-03-14] MEDS ORDERED: AMLODIPINE 5 MG TABLET PO SCH (09:00)
[2017-03-14] MEDS ORDERED: ALBUTEROL/IPRATROPIUM 2.5MG/0.5MG, 3 ML NPPB SCH (09:00)
[2017-03-14] MEDS ORDERED: SEVELAMER CARBONATE 800 MG PO SCH (09:00)
[2017-03-14] MEDS ORDERED: FLUOXETINE 20 MG CAPSULE PO SCH (09:00)
[2017-03-14 10:10] LABS: IS PT STATUS REG ER OR PRE ER? YES
[2017-03-14] MEDS ORDERED: SODIUM CHLORIDE 0.9% 500 ML IV SCH (10:30)
[2017-03-14] MEDS ORDERED: LORazepam INTENSOL 2 MG/ML SL PRN (12:30)
[2017-03-14] MEDS ORDERED: ATROPINE OPHTH SOLN 1%, 5ML BC PRN (12:30)
[2017-03-14 13:31] VITALS: BP 94/46
[2017-03-14] MEDS ORDERED: ONDANSETRON 2MG/ML, 2ML ONE (13:35)
[2017-03-14] MEDS ORDERED: SCOPOLAMINE PATCH, 1.5MG PATCH.TD72 TD PRN (14:00)
[2017-03-14] MEDS ORDERED: DARBEPOETIN 100 MCG/ML SQ SCH (14:00)
[2017-03-14] MEDS: morphine SULFATE ORAL.CONC 20 MG/ML SL PRN ×4 (14:35→18:03)
[2017-03-14] MEDS: ISOSORBIDE MONONITRATE ER 30 MG TABLET PO SCH (15:09)
[2017-03-14] MEDS: FERROUS SULFATE 325 MG TABLET PO SCH (15:10)
[2017-03-14] MEDS: HYDROcodone/APAP 5/325 TABLET PO PRN ×3 (15:10→20:26)
[2017-03-14] MEDS: CYANOCOBALAMIN 1,000 MCG TABLET PO SCH (15:10)
[2017-03-14 16:00] LABS: IS PT STATUS REG ER OR PRE ER? NO
[2017-03-14] MEDS ORDERED: HYDROmorphone 1 MG/ML, 1ML IV PRN (16:30)
[2017-03-14] MEDS ORDERED: SEVELAMER 800MG TABLET PO SCH (17:00)
[2017-03-14] MEDS: MORPHINE SULFATE 4 MG/ML, 1ML IVPush PRN (17:09)
[2017-03-14] MEDS ORDERED: CARVEDILOL 3.125 MG TABLET PO SCH (18:00)
[2017-03-14] MEDS ORDERED: ATORVASTATIN 20 MG TABLET PO SCH (21:00)
[2017-03-15] MEDS: HYDROcodone/APAP 5/325 TABLET PO PRN (01:37)
[2017-03-15] MEDS: FOLIC ACID 1 MG TABLET PO SCH (09:00)
[2017-03-15] MEDS: CYANOCOBALAMIN 1,000 MCG TABLET PO SCH (09:00)
[2017-03-15] MEDS: FERROUS SULFATE 325 MG TABLET PO SCH (09:00)
[2017-03-15] MEDS: ISOSORBIDE MONONITRATE ER 30 MG TABLET PO SCH (09:00)
[2017-03-15] MEDS: DRONABINOL 2.5 MG CAPSULE PO SCH (09:00)
[2017-03-15] MEDS: RANOLAZINE 500 MG TAB.ER.12H PO SCH (09:00)
[2017-03-15] MEDS: SENNA/DOCUSATE TABLET PO SCH (09:00)
[2017-03-15] MEDS: MORPHINE SULFATE 4 MG/ML, 1ML IVPush PRN ×2 (09:29→17:04)
== END 2017-03-15 17:30 | disposition hospice, home (50) | DRG 871 ==
LOC: EDBD 03:33 → MERGE 03:33 → ED 03:53 → EDIP 06:07 → 3NE 13:15 → 3NW 21:29
PROVIDERS: ADMIT Family Medicine; ATTEND Family Medicine
DX: A41.4 Sepsis due to anaerobes (principal); I21.4 Non-ST elevation (NSTEMI) myocardial infarction; N18.6 End stage renal disease; E43 Unspecified severe protein-calorie malnutrition; A04.7 Enterocolitis due to Clostridium difficile; I50.22 Chronic systolic (congestive) heart failure; K62.5 Hemorrhage of anus and rectum; M48.56XA Collapsed vertebra, not elsewhere classified, lumbar region, initial encounter for fracture; C90.00 Multiple myeloma not having achieved remission; I13.2 Hypertensive heart and chronic kidney disease with heart failure and with stage 5 chronic kidney disease, or end stage renal disease; D63.1 Anemia in chronic kidney disease; E11.22 Type 2 diabetes mellitus with diabetic chronic kidney disease; F32.9 Major depressive disorder, single episode, unspecified; E11.649 Type 2 diabetes mellitus with hypoglycemia without coma; E78.5 Hyperlipidemia, unspecified; I25.10 Atherosclerotic heart disease of native coronary artery without angina pectoris; I25.2 Old myocardial infarction; I48.0 Paroxysmal atrial fibrillation; K74.69 Other cirrhosis of liver; N40.0 Benign prostatic hyperplasia without lower urinary tract symptoms; Z51.5 Encounter for palliative care; M54.9 Dorsalgia, unspecified; M19.90 Unspecified osteoarthritis, unspecified site; G89.29 Other chronic pain; Z86.73 Personal history of transient ischemic attack (TIA), and cerebral infarction without residual deficits; Z87.891 Personal history of nicotine dependence; Z90.81 Acquired absence of spleen; Z95.5 Presence of coronary angioplasty implant and graft; Z99.2 Dependence on renal dialysis; Z87.440 Personal history of urinary (tract) infections; Z68.38 Body mass index [BMI] 38.0-38.9, adult; Z87.01 Personal history of pneumonia (recurrent); Z79.84 Long term (current) use of oral hypoglycemic drugs; Z79.82 Long term (current) use of aspirin; Z79.899 Other long term (current) drug therapy; Z79.4 Long term (current) use of insulin; Z80.9 Family history of malignant neoplasm, unspecified; Z82.49 Family history of ischemic heart disease and other diseases of the circulatory system; Z66 Do not resuscitate
CPT/HCPCS: 36415; 71010; 80048; 82040; 82962; 83735; 84100; 84439; 84484; 85014; 85018; 85025; 85520; 85610; 85730; 93005; 96365; 96366; 96375; 96376; 99292; J0881; J1644; J2405; J3370; Q0167; J7030; J7040